=== PATIENT | female | born 1935 | race Caucasian/White ===

== ENCOUNTER 2017-08-02 07:59 | Day surgery (SDC) | payer MEDICARE, SELFPAY ==
[2017-08-02] VITALS (7 sets, daily range): BP systolic 158–190; BP diastolic 70–78; PULSE 75–82; RESP 16–20; TEMP 36.3–36.5; O2SAT 95–98; BMI 31.8
== END 2017-08-02 11:24 | disposition home or self-care (01) ==
LOC: OR 08:02
PROVIDERS: Family Provider Family Medicine; PCP Family Medicine; Visit Provider Ophthalmology
DX: H26.9 Unspecified cataract (principal)
CPT/HCPCS: 66984; V2632

== ENCOUNTER → 2017-09-10 09:23 | Outpatient (CLI) | payer MEDICARE, SELFPAY ==
[2017-09-10 10:15] LABS: Alanine Aminotransferase 29 U/L (12-78); Albumin Level 3.8 gm/dL (3.4-5.0); Alkaline Phosphatase 80 U/L (46-116); Anion Gap 11.4 mEq/L (5-15); Aspartate Amino Transferase 12 U/L (15-37); Bilirubin,Total 0.3 mg/dL (0.2-1.0); Blood Urea Nitrogen 16 mg/dL (7-18); Calcium 9.4 mg/dL (8.5-10.1); Carbon Dioxide 31 mmol/L (21.0-32.0); Chloride 104 mmol/L (98-107); Chol/HDL Ratio 3.8 (1-3.5); Cholesterol 222 mg/dL (140-200); Creatinine,Serum 0.79 mg/dL (0.55-1.02); Estimated Glomerular Filt Rate 70 ml/min (>60); GFR (African American) 84 ML/MIN (>60); Glucose 109 mg/dL (74-106); HDL Cholesterol 58 mg/dL (29-89); LDL Cholesterol 131 mg/dL (0-130); Potassium 4.4 mmoL/L (3.5-5.1); Sodium 142 mmol/L (136-145); Total Protein,Serum 7.8 gm/dL (6.4-8.2); Triglycerides 167 mg/dL (30-200); VLDL Cholesterol 33 mg/dL (0-40)
[2017-09-10 10:19] LABS: Hemoglobin A1C 6.3 % (0.0-7.0)
== END ==
PROVIDERS: Visit Provider Family Medicine
DX: I10 Essential (primary) hypertension; F41.9 Anxiety disorder, unspecified; E78.5 Hyperlipidemia, unspecified; Z79.899 Other long term (current) drug therapy
CPT/HCPCS: 36415; 80053; 80061; 83036

== ENCOUNTER → 2018-03-07 16:37 | Outpatient (CLI) | payer MEDICARE, SELFPAY ==
--- NOTE | 2018-03-07 16:45 | XR_ITS ---
XR hand RT min 3V HISTORY: Post traumatic pain ITS.REASON: INJURY RIGHT SMALL FINGER ORDERING PHYSICIAN: Jase Leyva MD PATIENT AGE: 82 years COMPARISON: None FINDINGS: No fracture or dislocation. No lytic or blastic change. There is normal mineralization.. The joint spaces are well-preserved. No significant degenerative/arthritic changes. No erosive changes evident.. IMPRESSION: Negative, no acute finding
== END ==
PROVIDERS: PCP Family Medicine; Visit Provider Family Medicine
DX: M79.644 Pain in right finger(s) (principal)
CPT/HCPCS: 73130

== ENCOUNTER 2018-08-18 19:22 | Observation (INO) ==
[2018-08-18 19:41] LABS: Basophils % 0.5 % (0.1-2.0); Eosinophils # 0.1 K/mm3 (0.0-0.4); Eosinophils % 1.8 % (0.1-12.0); Hematocrit 40.1 % (37.0-47.0); Hemoglobin 12.8 g/dL (12.2-16.2); Lymphocytes % 38.8 % (10-50); Mean Corpuscular Hemoglobin 29.7 pg (27.0-31.2); Mean Corpuscular Volume 92.9 fl (81-99); Mean Platelet Volume 7.3 fl (7.4-10.4); Monocytes # 0.3 K/mm3 (0.1-1.0); Monocytes % 4.4 % (1.7-9.3); Neutrophils # 4.2 K/mm3 (1.8-7.8); Neutrophils % 54.5 % (37.0-80.0); Platelet Count 291 K/mm3 (142-424); Red Blood Count 4.32 M/mm3 (4.20-5.40); Red Cell Distribution Width 13.7 % (11.5-17.5); White Blood Count 7.7 K/mm3 (4.8-10.8)
[2018-08-18 19:57] LABS: Anion Gap 12.9 mEq/L (5-15); Blood Urea Nitrogen 19 mg/dL (7-18); Calcium 9.9 mg/dL (8.5-10.1); Carbon Dioxide 27 mmol/L (21.0-32.0); Chloride 100 mmol/L (98-107); Glucose 178 mg/dL (74-106); Potassium 3.9 mmoL/L (3.5-5.1); Sodium 136 mmol/L (136-145)
--- NOTE | 2018-08-18 20:47 | Emergency Department Note ---
ED Disposition Clinical Impression: Chest pain Qualifiers: Chest pain type: precordial pain Qualified Code(s): R07.2 - Precordial pain Disposition: Admitted as Observation Condition on Discharge: Good - Critical Care Critical Care Time: No Attestation: On 08/18/18, the high probability of a clinically significant, sudden or life threatening deterioration of the following system(s) required my full and direct attention, intervention and personal management. The time I documented below is in addition to time spent performing reported procedures but includes the following listed in this critical care notation. Medical Decision Making - Medical Records Medical records reviewed: Yes: I reviewed the patient's medical records. - James Inquiry Pt receiving controlled substance: No Vital Signs: 08/18/18 19:23 08/18/18 19:34 08/18/18 20:15 Temperature 98 F Temperature Source Oral Pulse Rate [Left Radial] 80 78 78 Respiratory Rate 15 16 Blood Pressure [Right Arm] 211/72 H 182/87 H 160/68 H Blood Pressure Mean [Right Arm] 118 118 98 Blood Pressure Source [Right Arm] Automatic Cuff Blood Pressure Position [Right Arm] Sitting 02 Sat by Pulse Oximetry 94 L 94 L Oxygen Delivery Method Nasal Cannula Room Air 08/18/18 22:04 08/18/18 22:16 Temperature Temperature Source Pulse Rate [Left Radial] 71 76 Respiratory Rate 16 16 Blood Pressure [Right Arm] 149/71 H 156/72 H Blood Pressure Mean [Right Arm] 97 100 Blood Pressure Source [Right Arm] Blood Pressure Position [Right Arm] 02 Sat by Pulse Oximetry 94 L 97 Oxygen Delivery Method Room Air Room Air - Lab Data Lab results reviewed: Yes: I reviewed the patient's lab results. Lab Results 08/18/18 19:31: WBC 7.7, RBC 4.32, Hgb 12.8, Hct 40.1, MCV 92.9, MCH 29.7, MCHC 32.0, RDW 13.7, Plt Count 291, MPV 7.3 L, Neut % (Auto) 54.5, Lymph % (Auto) 38.8, [place] % (Auto) 4.4, Eos % (Auto) 1.8, Baso % (Auto) 0.5, Neut # (Auto) 4.2, Lymph # (Auto) 3.0, [place] # (Auto) 0.3, Eos # (Auto) 0.1, Baso # (Auto) 0.0 08/18/18 19:31: Sodium 136, Potassium 3.9, Chloride 100, Carbon Dioxide 27, Anion Gap 12.9, BUN 19 H, Creatinine 0.84, Estimated Creat Clear 49, Estimated GFR 65, Est GFR ( Amer) 78, Glucose 178 H, Calcium 9.9, Troponin I < 0.02 Result diagrams: 08/18/18 19:31 08/18/18 19:31 Orders (Tests/Meds): ED MEDICATIONS Generic Name Dose Route Start Last Admin Trade Name Freq PRN Reason Stop Dose Admin Sodium Chloride 10 ml 08/18/18 19:31 Saline Flush 10ml Syringe IV 09/17/18 19:30 NEEDED PRN Maintain IV Site Discontinued Medications Generic Name Dose Route Start Last Admin Trade Name Freq PRN Reason Stop Dose Admin Aspirin 324 mg 08/18/18 19:31 08/18/18 19:34 Aspirin 81mg Chewable Tablet PO 08/18/18 19:32 324 mg ONCE ONE Administration Nitroglycerin 1 gm 08/18/18 22:12 08/18/18 22:16 Nitroglycerin 1 Inch Oint Udp TD 08/18/18 22:13 1 gm ONCE ONE Administration ORDERS Category Date Time Status XR chest portable Stat Exams 08/18/18 19:30 Taken - Radiology Data #1 Image(s): Chest Image Reviewed: Yes I reviewed the patient's radiology image Preliminary Findings: Abnormal (cm) - ECG Data Tracing #1 Normal Sinus Rhythm: Yes Ischemic changes: non-specific ST-T wave changes - Physician Consults Physician Consulted: eddie Reason -: Admission Chest Pain HPI - General Chief Complaint: Chest Pain Stated Complaint: palpitations Time Seen by Provider: 08/18/18 20:00 Mode of Arrival: Ambulatory Source of Information: Patient, Relative, Medical Record Limitations: No Limitations Description of Symptoms (Recalled from ER Triage Doc. by RN): pt reports palpitations that started this evening, daughter reports that patient "just has not felt well" all day today, states it feels like a "flutter" in her chest, pt reports she is also "getting over the flu" - History of Present Illness HPI narrative: pt with fluttering pressure pain in chest for a few hrs this afternoon described as pressure - she had something like this 2 yrs ago and possible 2 weeks ago with no eval reported - MD complaint: chest pain indicative of cardiac Onset (ago): hour(s) Duration: now resolved Activity at onset: during rest Pain location: left chest Severity: moderate Quality: other (pressure) Risk Factors for CAD: Hypertension, Family Hx of CAD Treatments prior to or on arrival for Cardiac Chest Pain: none - IESHA Score for Non-Stemi Age of Patient: 80-89 years old Heart Rate: 70-89 bpm Systolic Blood Pressure: 200 mmhg or higher Serum Creatinine: 0.80-1.19 mg/dl CHF [place] Class: I-No CHF Other Risk Factors: None Non-Stemi Risk Score: 107 - Related Data On Oral Contraceptives: No Home Medications Medication Instructions Recorded Confirmed Metoprolol Succinate 50 mg PO DAILY 08/02/17 08/18/18 Amlodipine Besylate/Benazepril 1 cap PO DAILY 07/20/18 08/18/18 [Amlodipine-Benazepril 10-20 mg] Doxazosin Mesylate [Doxazosin 1mg 1 mg PO DAILY 07/20/18 08/18/18 Tab] Allergies Allergy/AdvReac Type Severity Reaction Status Date / Time No Known Allergies Allergy Verified 08/18/18 19:30 [facility] History - Hepatitis A Screen Drug use history?: No High risk sexual behaviors?: No History of sexually transmitted infection?: No Currently employed?: No Childcare worker?: No Do you have indoor plumbing?: Yes Do you have electricity?: Yes Attestation statement:: This patient has been screened for Hepatitis A risk factors. I have reviewed the patient's past medical history: Yes Medical History: Reports:: Hypertension Denies:: Cancer, Diabetes Mellitus Type 1, Diabetes Mellitus Type 2, Internal Pacemaker, Lung Disease, MRSA, Seizures Laterality Cases: Bilateral: Other Other Surgeries: No: Pacemaker Amputation: No - Social History Smoking Status: Never smoker Alcohol Intake: never Occupational Status: retired Household Members: family - Psychiatric History Expresses thoughts of harming self/others: None Suicide Plan Description: No Plan ROS Obtained: Yes All systems reviewed & no additional complaints - Constitutional Constitutional: Denies fever(s) - Eyes Eyes: Denies change in vision - ENT Ears, Nose, Mouth, and Throat: Reports change in voice, Denies sore throat - Cardiovascular Cardiovascular: Reports chest pain, Reports chest pain at rest, Denies dyspnea, Denies radiating jaw, neck or arm pain, Denies rapid heart rate - Respiratory Respiratory: No cough - Gastrointestinal Gastrointestingal: Denies: abdominal pain - Genitourinary Female Genitourinary: Denies hematuria - Musculoskeletal Musculoskeletal: Denies joint pain - Integumentary/Breasts Skin/Breast: Denies rash - Neurologic Neurologic: Denies headache(s), Denies seizure-like activity Physical Exam - General General appearance: alert - Head Head exam: normocephalic - Eye Eye exam: Present: PERRL, EOMI. Absent: scleral icterus - ENT ENT exam: Present: mucous membranes dry - Neck Neck exam: Present: trachea midline - Respiratory Respiratory exam: Absent: respiratory distress - Cardiovascular Cardiovascular exam: Present: regular rate, systolic murmur, +S4 - Abdominal Exam Abdominal exam: Present: soft - Extremities Exam Extremities exam: Absent: calf tenderness - Neurological Exam Neurological exam: Present: alert, oriented X3, CN II-XII intact - Psychiatric Psychiatric exam: Present: normal affect - Skin Skin exam: Absent: rash
[2018-08-19 05:16] LABS: Basophils % 0.7 % (0.1-2.0); Eosinophils # 0.2 K/mm3 (0.0-0.4); Eosinophils % 3.6 % (0.1-12.0); Hematocrit 33.7 % (37.0-47.0); Lymphocytes # 2.1 K/mm3 (0.7-4.5); Lymphocytes % 36.8 % (10-50); Mean Corpuscular HGB Conc 32.2 g/dL (31.8-35.4); Mean Corpuscular Hemoglobin 30.3 pg (27.0-31.2); Mean Corpuscular Volume 94.2 fl (81-99); Mean Platelet Volume 7.4 fl (7.4-10.4); Monocytes # 0.3 K/mm3 (0.1-1.0); Monocytes % 4.5 % (1.7-9.3); Neutrophils # 3.1 K/mm3 (1.8-7.8); Neutrophils % 54.4 % (37.0-80.0); Platelet Count 233 K/mm3 (142-424); Red Blood Count 3.58 M/mm3 (4.20-5.40); Red Cell Distribution Width 13.7 % (11.5-17.5); White Blood Count 5.7 K/mm3 (4.8-10.8)
[2018-08-19 05:26] LABS: Hemoglobin 10.9 g/dL (12.2-16.2)
[2018-08-19 05:38] LABS: Anion Gap 10.6 mEq/L (5-15); Blood Urea Nitrogen 17 mg/dL (7-18); Calcium 9.4 mg/dL (8.5-10.1); Carbon Dioxide 28 mmol/L (21.0-32.0); Chloride 104 mmol/L (98-107); Potassium 4.6 mmoL/L (3.5-5.1); Sodium 138 mmol/L (136-145)
[2018-08-19 05:39] LABS: Glucose 108 mg/dL (74-106)
--- NOTE | 2018-08-19 09:10 | H&P/Discharge Summary ---
General - General Admission date:: 08/18/18 *Chief complaint: Chest pressure *History of present illness: Ms. Allan is an 83-year-old white female with a history of hypertension. Yesterday, while resting at home she began feeling a fluttering sensation in her chest followed by some mild chest pressure. No saima chest pain. No increased shortness of breath or nausea. She states that the night before she had not rested well because of an upset stomach but had no vomiting, abdominal pain, or diarrhea. Her symptoms of chest pressure persisted and she presented to the emergency room last evening. She was worked up in the ER. Her initial cardiac enzymes and EKG were normal and her symptoms resolved while in the emergency room. She has been admitted for further observation and serial enzymes. At the time of my exam this morning, she states she rested well through the night. She feels better this morning. She has had no further symptoms of chest pressure or fluttering. She tolerated her breakfast. [facility] History Medical History: Reports:: Anxiety, Gastroesophageal Reflux Disease(GERD), Hiatal Hernia, Hypertension Denies:: Atrial Fibrillation, Cancer, Chronic Obstructive Pulmonary Disease (COPD), Diabetes Mellitus Type 2, Internal Pacemaker, Lung Disease, MRSA, Seizures Have you ever received a pneumonia vaccine?: No Have you received a flu vaccine this season?: No Other Medical History: Reports: Cataracts. Denies: Thyroid Disease Laterality Cases: Bilateral: Cataract, Other Other Surgeries: Yes: Cholecystectomy Amputation: No Fractures: No - *Social History Educational Level: Completed High School Smoking Status: Never smoker Alcohol Intake: never Occupational Status: retired Housing: house Household Members: family Travel in the last 8 weeks: None - Psychiatric History Expresses thoughts of harming self/others: None Suicide Plan Description: No Plan Pschychiatric History:: Reports:: Anxiety Family Hx:: No significant family history Review of Systems - Constitutional Reports lack of energy, Reports malaise, Denies anorexia, Denies body ache(s), Denies chills - Eyes Denies blurry vision, Denies change in vision, Denies double vision - ENT Reports dry mouth, Reports ear pain, Reports other (nose feels dry), Denies difficulty swallowing - *Cardiovascular Reports other (See HPI) - *Respiratory Reports cough, Denies chest congestion, Denies shortness of breath - *Gastrointestinal Reports abdominal pain (epigastric, mild), Reports nausea, Denies change in bowel habits, Denies black, tarry stools, Denies vomiting - *Genitourinary Denies abnormal vaginal bleeding, Denies blood in urine, Denies urinary urgency - *Musculoskeletal Denies joint swelling, Denies body aches - Integumentary/Breasts Denies yellowing of the skin, Denies unusual bruising - *Neurologic Denies headache(s), Denies seizure-like activity - Psychiatric Denies anxiety, Denies behavioral changes, Denies change in appetite - Endocrine Denies excessive sweating, Denies flushing - Hematologic/Lymphatic Denies easy bruising - Allergic/Immunologic Denies itchy eyes, Denies throat swelling Exam Vital signs and Labs for Last 24 Hours: Temp Pulse Resp BP Pulse Ox 97.8 F 80 20 122/59 L 92 L 08/19/18 08:00 08/19/18 08:00 08/19/18 03:55 08/19/18 08:00 08/19/18 08:00 Laboratory Results - last 24 hr 08/18/18 19:31: WBC 7.7, RBC 4.32, Hgb 12.8, Hct 40.1, MCV 92.9, MCH 29.7, MCHC 32.0, RDW 13.7, Plt Count 291, MPV 7.3 L, Neut % (Auto) 54.5, Lymph % (Auto) 38.8, [place] % (Auto) 4.4, Eos % (Auto) 1.8, Baso % (Auto) 0.5, Neut # (Auto) 4.2, Lymph # (Auto) 3.0, [place] # (Auto) 0.3, Eos # (Auto) 0.1, Baso # (Auto) 0.0 08/18/18 19:31: Sodium 136, Potassium 3.9, Chloride 100, Carbon Dioxide 27, Anion Gap 12.9, BUN 19 H, Creatinine 0.84, Estimated Creat Clear 49, Estimated GFR 65, Est GFR ( Amer) 78, Glucose 178 H, Calcium 9.9, Troponin I < 0.02 08/19/18 02:00: Troponin I < 0.02 08/19/18 04:30: Sodium 138, Potassium 4.6, Chloride 104, Carbon Dioxide 28, Anion Gap 10.6, BUN 17, Creatinine 0.75, Estimated Creat Clear 49, Estimated GFR 74, Est GFR ( Amer) 89, Glucose 108 H D, Calcium 9.4, Magnesium 2.3 H, Troponin I < 0.02 08/19/18 04:30: WBC 5.7 D, RBC 3.58 L, Hgb 10.9 L D, Hct 33.7 L, MCV 94.2, MCH 30.3, MCHC 32.2, RDW 13.7, Plt Count 233, MPV 7.4, Neut % (Auto) 54.4, Lymph % (Auto) 36.8, [place] % (Auto) 4.5, Eos % (Auto) 3.6, Baso % (Auto) 0.7, Neut # (Auto) 3.1, Lymph # (Auto) 2.1, [place] # (Auto) 0.3, Eos # (Auto) 0.2, Baso # (Auto) 0.0 I & O for Last 24 hours: Intake & Output 08/16/18 08/17/18 08/18/18 08/19/18 11:59 11:59 11:59 11:59 Intake Total 671 / 671 Balance 671 / 671 Weight 163 lb 7 oz Narrative: She is sitting on the side of the bed and appears in no acute distress. Color is normal. She is alert and oriented to person, legs, and time. HEENT shows the cranium to be atraumatic and normocephalic. Sclera and conjunctive are clear. Nares patent. Oropharynx shows no oral lesions. Neck is supple with no masses, thyromegaly, or bruits. Lungs are clear to auscultation. Heart is regular with no murmurs. Abdomen is soft and nondistended with no unusual masses. There is mild epigastric tenderness to palpation. No rebound or guarding. Extremities show no edema. Hospital Course Hospital Course: She was admitted to the floor to a monitored bed. residential monitor is showing normal sinus rhythm. Serial enzymes have been negative. She rested well through the night with no further symptoms of chest pressure or palpitations. She has ambulated in the room this morning and tolerated her breakfast. She is stable for discharge home. We discussed her past history of hiatal hernia and reflux. She is not currently on medications for this. Her symptoms last evening could be a manifestation of her hernia. She will be discharged home on omeprazole and followed up as an outpatient. Results Labs on day of discharge: Labs from last 24 hours 08/19/18 08/19/18 08/19/18 04:30 04:30 02:00 WBC 5.7 D RBC 3.58 L Hgb 10.9 L D Hct 33.7 L MCV 94.2 MCH 30.3 MCHC 32.2 RDW 13.7 Plt Count 233 MPV 7.4 Neut % (Auto) 54.4 Lymph % (Auto) 36.8 [place] % (Auto) 4.5 Eos % (Auto) 3.6 Baso % (Auto) 0.7 Neut # (Auto) 3.1 Lymph # (Auto) 2.1 [place] # (Auto) 0.3 Eos # (Auto) 0.2 Baso # (Auto) 0.0 Sodium 138 Potassium 4.6 Chloride 104 Carbon Dioxide 28 Anion Gap 10.6 BUN 17 Creatinine 0.75 Estimated Creat Clear 49 Estimated GFR 74 Est GFR ( Amer) 89 Glucose 108 H D Calcium 9.4 Magnesium 2.3 H Troponin I < 0.02 < 0.02 08/18/18 08/18/18 19:31 19:31 WBC 7.7 RBC 4.32 Hgb 12.8 Hct 40.1 MCV 92.9 MCH 29.7 MCHC 32.0 RDW 13.7 Plt Count 291 MPV 7.3 L Neut % (Auto) 54.5 Lymph % (Auto) 38.8 [place] % (Auto) 4.4 Eos % (Auto) 1.8 Baso % (Auto) 0.5 Neut # (Auto) 4.2 Lymph # (Auto) 3.0 [place] # (Auto) 0.3 Eos # (Auto) 0.1 Baso # (Auto) 0.0 Sodium 136 Potassium 3.9 Chloride 100 Carbon Dioxide 27 Anion Gap 12.9 BUN 19 H Creatinine 0.84 Estimated Creat Clear 49 Estimated GFR 65 Est GFR ( Amer) 78 Glucose 178 H Calcium 9.9 Magnesium Troponin I < 0.02 - Impressions FINDINGS: The lung queen are well expanded and appear clear of infiltrate. There is mild generalized cardiomegaly with calcification of the aortic arch, however the vascularity is normal and there is no pleural fluid. IMPRESSION: Borderline cardio megaly, no acute chest pathology noted. DS: Diagnosis - Discharge Diagnosis (1) Chest pain Status: Acute (2) Hypertension Status: Acute (3) Hiatal hernia Status: Acute Discharge Medications - Medications for Discharge Home Medication List at Discharge: New Omeprazole [Omeprazole 20mg Capsule] 20 mg PO DAILY #30 cap Continue Doxazosin Mesylate [Doxazosin 1mg Tab] 1 mg PO BID Metoprolol Succinate 50 mg PO DAILY Amlodipine Besylate [Amlodipine 10mg Tab] 10 mg PO HS Benazepril HCl 20 mg PO DAILY Disposition Disposition: Home, Self-Care
== END 2018-08-19 10:34 | disposition home or self-care (01) ==
LOC: 2ND 19:22 → ER 19:22 → 2ND 22:53
PROVIDERS: ADMIT Family Medicine; ATTEND Family Medicine
CPT/HCPCS: 36415; 71010; 71045; 80048; 83735; 84484; 85025; 93005; 99284; G0378

== ENCOUNTER → 2018-09-04 09:09 | Outpatient (CLI) | payer MEDICARE, SELFPAY ==
[2018-09-04 10:06] LABS: Alanine Aminotransferase 18 U/L (12-78); Albumin Level 3.8 gm/dL (3.4-5.0); Albumin/Globulin Ratio 1.1 (1.1-1.8); Alkaline Phosphatase 88 U/L (46-116); Anion Gap 12.3 mEq/L (5-15); Aspartate Amino Transferase 7 U/L (15-37); Bilirubin,Total 0.4 mg/dL (0.2-1.0); Blood Urea Nitrogen 18 mg/dL (7-18); Calcium 10.3 mg/dL (8.5-10.1); Carbon Dioxide 28 mmol/L (21.0-32.0); Chloride 104 mmol/L (98-107); Chol/HDL Ratio 3.2 (1-3.5); Cholesterol 199 mg/dL (140-200); Creatinine,Serum 0.78 mg/dL (0.55-1.02); Estimated Glomerular Filt Rate 70 ml/min (>60); GFR (African American) 85 ML/MIN (>60); Globulin 3.6 gm/dl (1.3-3.2); Glucose 125 mg/dL (74-106); HDL Cholesterol 63 mg/dL (29-89); LDL Cholesterol 112 mg/dL (0-130); Potassium 4.3 mmoL/L (3.5-5.1); Sodium 140 mmol/L (136-145); Thyroid Stimulating Hormone 0.64 uIU/ml (0.358-3.740); Total Protein,Serum 7.4 gm/dL (6.4-8.2); Triglycerides 120 mg/dL (30-200); VLDL Cholesterol 24 mg/dL (0-40)
== END ==
PROVIDERS: Visit Provider Family Medicine
DX: E78.5 Hyperlipidemia, unspecified (principal); I10 Essential (primary) hypertension; F32.9 Major depressive disorder, single episode, unspecified
CPT/HCPCS: 36415; 80053; 80061; 84443

== ENCOUNTER → 2019-02-22 15:18 | Outpatient (CLI) | payer MEDICARE, SELFPAY ==
--- NOTE | 2019-02-22 15:20 | CT_ITS ---
PROCEDURE: CT SINUS WO CON CLINICAL HISTORY: CHRONIC PANSINUSITIS Bilateral ear pain, chronic sinusitis COMPARISON: No exams were available for comparison TECHNIQUE: Axial images obtained with sagittal and coronal reformats. All CT scans at the facility use one or more dose reduction, viz: automated exposure control, ma/kV adjustment per patient size (including targeted exams where dose is matched to indication, i.e. head), or iterative reconstruction technique. FINDINGS: The frontal, ethmoid, maxillary sinuses have an unremarkable appearance. There is a small amount of mucous within the right aspect of the sphenoid sinus. No sinus air-fluid level. The ostiomeatal complexes are patent. Scattered small lymph nodes are present in the neck. The orbits have an unremarkable appearance. No mastoid effusion. The middle ears are well aerated. There is some obliteration of the lateral pharyngeal recess on the right. This may be due to nondistention. Direct visualization may confirm. IMPRESSION: Negative CT paranasal sinuses Small cervical nodes. Nonspecific obliteration of the right parapharyngeal recess Dictated by: Rik Felder MD 02/23/2019 05:25 Signed by: <Electronically signed by Rik Felder MD in [facility]> 02/23/2019 05:25
== END ==
PROVIDERS: PCP Family Medicine; Visit Provider Family Medicine
DX: J32.4 Chronic pansinusitis (principal)
CPT/HCPCS: 70486

== ENCOUNTER → 2020-06-24 16:26 | Outpatient (CLI) | payer MEDICARE, SELFPAY | PROVIDERS: Visit Provider Physician Assistant | DX: R30.0 Dysuria (principal) | CPT/HCPCS: 87086 ==

== ENCOUNTER → 2020-07-09 15:14 | Outpatient (CLI) | payer MEDICARE, SELFPAY | PROVIDERS: Visit Provider Physician Assistant | DX: R39.9 Unspecified symptoms and signs involving the genitourinary system (principal) | CPT/HCPCS: 87086 ==

== ENCOUNTER → 2020-07-10 15:01 | Outpatient (CLI) | payer MEDICARE, SELFPAY ==
[2020-07-10 15:56] LABS: Basophils # 0.1 K/mm3 (0-0.2); Basophils % 0.8 % (0.1-2.0); Eosinophils # 0.2 K/mm3 (0.0-0.4); Eosinophils % 2.3 % (0.1-12.0); Hematocrit 42.8 % (37.0-47.0); Hemoglobin 12.8 g/dL (12.2-16.2); Lymphocytes # 1.5 K/mm3 (0.7-4.5); Lymphocytes % 22.9 % (10-50); Mean Corpuscular Hemoglobin 29.2 pg (27.0-31.2); Mean Corpuscular Volume 97.4 fl (81-99); Mean Platelet Volume 9.3 fl (7.4-10.4); Monocytes # 0.2 K/mm3 (0.1-1.0); Monocytes % 3.5 % (1.7-9.3); Neutrophils # 4.7 K/mm3 (1.8-7.8); Neutrophils % 70.5 % (37.0-80.0); Platelet Count 287 K/mm3 (142-424); Red Blood Count 4.39 M/mm3 (4.20-5.40); Red Cell Distribution Width 12.7 % (11.5-17.5); White Blood Count 6.6 K/mm3 (4.8-10.8)
[2020-07-10 16:06] LABS: Alanine Aminotransferase 18 U/L (12-78); Albumin Level 4.2 g/dl (3.5-5.0); Albumin/Globulin Ratio 1.2 (1.1-1.8); Alkaline Phosphatase 73 U/L (38-126); Aspartate Amino Transferase 26 U/L (14-36); Bilirubin,Total 0.5 mg/dl (0.2-1.3); Blood Urea Nitrogen 18 mg/dl (7-17); Calcium 10.4 mg/dl (8.4-10.2); Carbon Dioxide 27 mmol/L (22.0-30.0); Chloride 101 mmol/L (98-107); Chol/HDL Ratio 3.5 (1-3.5); Cholesterol 215 mg/dl (140-200); Estimated Glomerular Filt Rate 79 ml/min (>60); GFR (African American) 96 ML/MIN (>60); Globulin 3.6 g/dL (1.3-3.2); Glucose 212 mg/dl (74-100); HDL Cholesterol 62 mg/dl (40-60); Magnesium 1.9 mg/dl (1.6-2.3); Sodium 137 mmol/L (136-145); Total Protein,Serum 7.8 g/dl (6.3-8.2); Triglycerides 142 mg/dl (30-150); VLDL Cholesterol 28 mg/dL (0-40)
[2020-07-10 16:17] LABS: Direct LDL Cholesterol 120.16 mg/dL (100-129)
[2020-07-10 16:24] LABS: 25-OH Vitamin D, Total 34.4 ng/mL (30-100)
[2020-07-10 16:25] LABS: Free T4 (Free Thyroxine) 1.09 ng/dl (0.78-2.19)
[2020-07-10 16:38] LABS: Thyroid Stimulating Hormone 1.78 uIU/mL (0.465-4.68)
== END ==
PROVIDERS: Visit Provider Physician Assistant
DX: Z00.00 Encounter for general adult medical examination without abnormal findings (principal); R39.9 Unspecified symptoms and signs involving the genitourinary system; R68.89 Other general symptoms and signs; R07.9 Chest pain, unspecified
CPT/HCPCS: 80053; 80061; 82306; 83735; 84439; 84443; 85025

== ENCOUNTER → 2020-07-17 13:59 | Outpatient (CLI) | payer MEDICARE, SELFPAY ==
[2020-07-17 15:37] LABS: Hemoglobin A1C 5.9 % (4.0-6.0)
== END ==
PROVIDERS: Visit Provider Physician Assistant
DX: R73.09 Other abnormal glucose (principal)
CPT/HCPCS: 83036

== ENCOUNTER → 2020-12-03 09:34 | Outpatient (CLI) | payer MEDICARE, SELFPAY ==
--- NOTE | 2020-12-03 09:34 | XR_ITS ---
PROCEDURE: XR DEXA AXIAL SKELETON CLINICAL HISTORY: post menopausal COMPARISON: No exams were available for comparison FINDINGS: The right hip BMD is 0.648 with a T-score of -2.4. The left hip BMD is 0.564 with a T-score of -2.6. The lumbar spine BMD is 0.722 with a T-score of -3.0. IMPRESSION: This patient is considered osteoporotic according to the World Health Organization criteria. Fracture risk is high. Treatment is advised. Based on these results a follow-up exam is recommended in one year. Dictated by: Rik Felder MD 12/04/2020 07:49 Rik Felder MD in [facility] 12/04/2020 07:49
== END ==
PROVIDERS: PCP Physician Assistant; Visit Provider Physician Assistant
DX: Z78.0 Asymptomatic menopausal state (principal)
CPT/HCPCS: 77080

== ENCOUNTER → 2020-12-16 15:13 | Outpatient (CLI) | payer MEDICARE, SELFPAY ==
[2020-12-16 15:24] LABS: Basophils % 0.6 % (0.1-2.0); Chloride 101 mmol/L (98-107); Eosinophils # 0.1 K/mm3 (0.0-0.4); Eosinophils % 1.6 % (0.1-12.0); Hematocrit 38.6 % (37.0-47.0); Hemoglobin 12.6 g/dL (12.2-16.2); Lymphocytes # 1.3 K/mm3 (0.7-4.5); Lymphocytes % 21.1 % (10-50); Mean Corpuscular HGB Conc 32.7 g/dL (31.8-35.4); Mean Corpuscular Hemoglobin 30.6 pg (27.0-31.2); Mean Corpuscular Volume 93.4 fl (81-99); Mean Platelet Volume 8.9 fl (7.4-10.4); Monocytes # 0.3 K/mm3 (0.1-1.0); Monocytes % 4.7 % (1.7-9.3); Neutrophils # 4.6 K/mm3 (1.8-7.8); Neutrophils % 71.9 % (37.0-80.0); Platelet Count 279 K/mm3 (142-424); Potassium 5.4 mmoL/L (3.5-5.1); Red Blood Count 4.13 M/mm3 (4.20-5.40); Red Cell Distribution Width 13.1 % (11.5-17.5); Sodium 139 mmol/L (136-145); White Blood Count 6.4 K/mm3 (4.8-10.8)
[2020-12-16 15:27] LABS: Alanine Aminotransferase 14 U/L (12-78); Albumin Level 4.3 g/dl (3.5-5.0); Alkaline Phosphatase 74 U/L (38-126); Amylase 41 U/L (30-110); Anion Gap 13.4 mEq/L (5-15); Aspartate Amino Transferase 22 U/L (14-36); Bilirubin,Total 0.4 mg/dl (0.2-1.3); Blood Urea Nitrogen 18 mg/dl (7-17); Calcium 10.6 mg/dl (8.4-10.2); Carbon Dioxide 30 mmol/L (22.0-30.0); Estimated Glomerular Filt Rate 79 ml/min (>60); GFR (African American) 96 ML/MIN (>60); Glucose 158 mg/dl (74-100); Lipase 24 U/L (23-300)
[2020-12-16 15:28] LABS: Albumin/Globulin Ratio 1.3 (1.1-1.8); Globulin 3.3 g/dL (1.3-3.2); Total Protein,Serum 7.6 g/dl (6.3-8.2)
== END ==
PROVIDERS: Visit Provider Physician Assistant
DX: R10.13 Epigastric pain (principal)
CPT/HCPCS: 80053; 82150; 83690; 85025

== ENCOUNTER → 2020-12-18 13:59 | Outpatient (CLI) | payer MEDICARE, SELFPAY | PROVIDERS: Visit Provider Physician Assistant | DX: R30.9 Painful micturition, unspecified (principal); R68.89 Other general symptoms and signs | CPT/HCPCS: 87086 ==

== ENCOUNTER → 2020-12-22 14:04 | Outpatient (CLI) | payer MEDICARE, SELFPAY ==
--- NOTE | 2020-12-22 14:29 | XR_ITS ---
PROCEDURE: XR CHEST 2V CLINICAL HISTORY: epigastric pain COMPARISON: CR CXR2V XR chest 2V from 07/20/2018 CR CXR1VP XR chest portable from 08/18/2018 CR XR CHEST PORTABLE from 06/27/2019 FINDINGS: The heart is mildly enlarged and there is mild pulmonary vascular congestion with tiny right pleural effusion. No pneumothorax. Mild bibasilar scar versus atelectasis. No definite focal infiltrate. No acute bony abnormality. IMPRESSION: Mild cardiomegaly with mild pulmonary vascular congestion and tiny right pleural effusion. Dictated by: Julio Scales 12/22/2020 14:56 Julio Scales in [facility] 12/22/2020 14:56
--- NOTE | 2020-12-22 14:29 | XR_ITS ---
PROCEDURE: XR ABDOMEN MIN 2V CLINICAL INDICATION: epigastric pain COMPARISON: No exams were available for comparison FINDINGS: AP supine and upright views of the abdomen show a nonspecific bowel gas appearance without obstructive features. Moderate amount of stool in the colon. No free intraperitoneal air. Cholecystectomy clips noted. No acute bony abnormality. IMPRESSION: Nonspecific bowel gas appearance without obstructive features. Moderate amount of stool in the colon. No free intraperitoneal air. Dictated by: Julio Scales 12/22/2020 15:01 Julio Scales in [facility] 12/22/2020 15:01
[2020-12-22 14:42] LABS: Basophils # 0.1 K/mm3 (0-0.2); Basophils % 0.7 % (0.1-2.0); Eosinophils # 0.1 K/mm3 (0.0-0.4); Eosinophils % 0.6 % (0.1-12.0); Hematocrit 36.6 % (37.0-47.0); Hemoglobin 12.3 g/dL (12.2-16.2); Lymphocytes # 1.3 K/mm3 (0.7-4.5); Lymphocytes % 15.8 % (10-50); Mean Corpuscular HGB Conc 33.8 g/dL (31.8-35.4); Mean Corpuscular Hemoglobin 31.1 pg (27.0-31.2); Mean Corpuscular Volume 92.2 fl (81-99); Mean Platelet Volume 8.3 fl (7.4-10.4); Monocytes # 0.4 K/mm3 (0.1-1.0); Monocytes % 4.6 % (1.7-9.3); Neutrophils # 6.3 K/mm3 (1.8-7.8); Neutrophils % 78.3 % (37.0-80.0); Platelet Count 257 K/mm3 (142-424); Red Blood Count 3.97 M/mm3 (4.20-5.40)
[2020-12-22 15:34] LABS: Alanine Aminotransferase 14 U/L (12-78); Albumin Level 4.2 g/dl (3.5-5.0); Albumin/Globulin Ratio 1.3 (1.1-1.8); Alkaline Phosphatase 75 U/L (38-126); Amylase 36 U/L (30-110); Anion Gap 10.5 mEq/L (5-15); Aspartate Amino Transferase 22 U/L (14-36); Bilirubin,Total 0.4 mg/dl (0.2-1.3); Blood Urea Nitrogen 16 mg/dl (7-17); Calcium 9.7 mg/dl (8.4-10.2); Carbon Dioxide 27 mmol/L (22.0-30.0); Chloride 102 mmol/L (98-107); Estimated Glomerular Filt Rate 79 ml/min (>60); GFR (African American) 96 ML/MIN (>60); Globulin 3.2 g/dL (1.3-3.2); Glucose 126 mg/dl (74-100); Lipase 23 U/L (23-300); Potassium 4.5 mmoL/L (3.5-5.1); Sodium 135 mmol/L (136-145); Total Protein,Serum 7.4 g/dl (6.3-8.2)
== END ==
PROVIDERS: PCP Physician Assistant; Visit Provider Physician Assistant
DX: R10.13 Epigastric pain (principal); R41.0 Disorientation, unspecified
CPT/HCPCS: 36415; 71046; 74019; 80053; 82150; 83690; 85025

== ENCOUNTER 2020-12-22 20:28 | Emergency (ER) | payer MEDICARE, SELFPAY ==
[2020-12-22 20:28] VITALS: PULSE 87; RESP 18; TEMP 36.9; O2SAT 93; BMI 26.5
--- NOTE | 2020-12-22 20:34 | ECG_ITS ---
APPROVED REPORT Exam: Resting ECG HR:77 bpm ECG Measurements Heart Rate 77 AXES MO 168 P 62 QRSd 106 QRS 50 QT 368 T 52 QTc 416 Conclusion Normal sinus rhythm Cannot rule out Anterior infarct, age undetermined Abnormal ECG Electronically signed by : Fly Haynes, 12/23/2020 08:17:13
--- NOTE | 2020-12-22 20:47 | CT_ITS ---
PROCEDURE INFORMATION: Exam: CT Abdomen And Pelvis With Contrast Exam date and time: 12/22/2020 8:47 PM Age: 85 years old Clinical indication: Abdominal pain; Generalized; Additional info: Abd pain TECHNIQUE: Imaging protocol: Computed tomography of the abdomen and pelvis with contrast. Radiation optimization: All CT scans at this facility use at least one of these dose optimization techniques: automated exposure control; mA and/or kV adjustment per patient size (includes targeted exams where dose is matched to clinical indication); or iterative reconstruction. Contrast material: ISOVUE; Contrast volume: 75 ml; Contrast route: IV; COMPARISON: CR XR ABDOMEN MIN 2V 12/22/2020 2:35 PM FINDINGS: Lungs: Mild streaky and dependent infiltrates in both lung bases. Pleural spaces: There are trace dependent pleural effusions. Heart: There is mild multichamber cardiomegaly with a trace pericardial effusion. Liver: Hepatic steatosis. Gallbladder and bile ducts: Status post cholecystectomy. Pancreas: Atrophy of the pancreas. Spleen: No splenomegaly or splenic mass. Adrenal glands: Normal. No mass. Kidneys and ureters: There are a few tiny low-density lesions within the kidneys which are too small to characterize. Stomach and bowel: There is diverticulosis most severe in the sigmoid colon but no definite diverticulitis. No small bowel obstruction or ileus is seen. Appendix: No evidence of appendicitis. No appendicolith. Intraperitoneal space: No free fluid, free air or focal inflammatory infiltration. Vasculature: There are multiple punctate phleboliths in the pelvis. Lymph nodes: No enlarged lymph nodes within the retroperitoneal space or mesentery. Urinary bladder: Unremarkable as visualized. Reproductive: Unremarkable as visualized. Bones/joints: Unremarkable. No acute fracture. No osteolytic or blastic bone lesions. Soft tissues: Paraspinous and extracorporeal soft tissues are unremarkable. IMPRESSION: 1. Diverticulosis but no definite diverticulitis. 2. Mild cardiomegaly with a trace pericardial effusion. 3. Trace dependent pleural effusions with mild streaky and dependent infiltrates in the lung bases. 4. Hepatic steatosis. 5. Status post cholecystectomy. COMMENTS: Consistent with the [employer]'s Incidental Findings Committee white paper (J Am Henry Radiol 2018): Any incidental renal lesion less than 1 cm or classified as too small to characterize, or any incidental cystic renal lesion characterized as simple-appearing, is likely benign. No follow-up imaging is recommended for these lesions per consensus recommendations based on imaging criteria.
[2020-12-22 21:00] VITALS: BP 182/73; PULSE 83; O2SAT 94
--- NOTE | 2020-12-22 21:05 | PC.NURSE ---
pt gone to CT.
--- NOTE | 2020-12-22 21:08 | HMH.EDNVD ---
ED Disposition Clinical Impression: Gastritis Qualifiers: Gastritis type: unspecified gastritis Chronicity: acute Gastritis bleeding: without bleeding Qualified Code(s): K29.00 - Acute gastritis without bleeding Disposition: Home, Self-Care Condition on Discharge: Good Instructions: DI for Acute Abdominal Pain Additional Instructions: use meds and see pcp for follow up Prescriptions: Sucralfate [Carafate 1gm/10mL Susp] 1 gm PO TID #300 ml Transmission Status: P[facility] to [facility] Metoclopramide HCl [Reglan 5mg Tablet] 5 mg PO ACHS 10 Days #40 tab Transmission Status: Pending to [facility] Referrals: Swathi Dean PA [Primary Care Provider] - - Critical Care Critical Care Time: No Attestation: On 12/22/20, the high probability of a clinically significant, sudden or life threatening deterioration of the following system(s) required my full and direct attention, intervention and personal management. The time I documented below is in addition to time spent performing reported procedures but includes the following listed in this critical care notation. Medical Decision Making - Medical Records Medical records reviewed: Yes: I reviewed the patient's medical records. - James Inquiry Pt receiving controlled substance: No Vital Signs: 12/22/20 20:28 12/22/20 21:00 12/22/20 21:43 Temperature 98.5 F Temperature Source Oral Pulse Rate 83 76 Pulse Rate [Left Radial] 87 Respiratory Rate 18 Blood Pressure 182/73 H 196/71 H Blood Pressure Source [Right Arm] Automatic Cuff Blood Pressure Position [Right Arm] Sitting 02 Sat by Pulse Oximetry 93 L 94 L 96 Oxygen Delivery Method Room Air - Lab Data Lab results reviewed: Yes: I reviewed the patient's lab results. Lab Results 12/22/20 21:02: Amylase < 30 L D, Lipase 25 12/22/20 21:03: WBC 8.5, RBC 3.93 L, Hgb 12.1 L, Hct 35.6 L, MCV 90.5, MCH 30.8, MCHC 34.0, RDW 13.1, Plt Count 247, MPV 8.5, Neut % (Auto) 71.1, Lymph % (Auto) 21.2, [place] % (Auto) 6.1, Eos % (Auto) 1.1, Baso % (Auto) 0.3, Neut # (Auto) 6.0, Lymph # (Auto) 1.8, [place] # (Auto) 0.5, Eos # (Auto) 0.1, Baso # (Auto) 0.0, ESR 121 H 12/22/20 21:03: Sodium 136, Potassium 3.9, Chloride 102, Carbon Dioxide 27, Anion Gap 10.9, BUN 17, Creatinine 0.80, Estimated Creat Clear 42, Estimated GFR 68, Est GFR ( Amer) 82, Glucose 89 D, Calcium 9.6, Total Bilirubin 0.4, AST 20, ALT 13, Alkaline Phosphatase 84, Troponin I < 0.01, C-Reactive Protein 6.1 H, Total Protein 7.8, Albumin 4.3, Globulin 3.5 H, Albumin/Globulin Ratio 1.2, Procalcitonin 0.036 12/22/20 21:50: Urine Color Yellow, Urine Appearance Clear, Urine pH 6.5, Ur Specific [place] 1.010, Urine Protein Negative, Urine Glucose (UA) Negative, Urine Ketones Negative, Urine Blood Negative, Urine Nitrate Negative, Urine Bilirubin Negative, Urine Urobilinogen 0.2, Ur Leukocyte Esterase Negative, Urine RBC None, Urine WBC None, Ur Squamous Epith Cells None, Urine Bacteria None Result diagrams: 12/22/20 21:03 12/22/20 21:03 Orders (Tests/Meds): ED MEDICATIONS Generic Name Dose Route Start Last Admin Trade Name Freq PRN Reason Stop Dose Admin Lactated Ringer's 1,000 mls @ 999 mls/hr 12/22/20 21:00 12/22/20 20:52 Lactated Ringer's 1000 Ml Bag IV 12/22/20 22:00 999 mls/hr .Q1H1M [facility] Administration Sodium Chloride 8 ml 12/22/20 20:48 Sodium Chloride 0.9% 10ml Vial IV 01/21/21 20:47 NEEDED PRN dilute pepcid Discontinued Medications Generic Name Dose Route Start Last Admin Trade Name Freq PRN Reason Stop Dose Admin Famotidine 20 mg 12/22/20 20:48 12/22/20 20:52 Famotidine 20mg/2ml Vial IV 12/22/20 20:49 20 mg ONCE ONE Administration Iopamidol 75 ml 12/22/20 21:14 12/22/20 21:15 Iopamidol-370 (76%);100ml Bottle IV 12/22/20 21:15 75 ml ONCE ONE Administration Metoclopramide HCl 10 mg 12/22/20 20:47 12/22/20 20:52 Metoclopramide Hcl 10mg/2ml Vial
[2020-12-22 21:15] LABS: Chloride 102 mmol/L (98-107); Potassium 3.9 mmoL/L (3.5-5.1); Sodium 136 mmol/L (136-145)
[2020-12-22 21:17] LABS: Basophils % 0.3 % (0.1-2.0); Eosinophils # 0.1 K/mm3 (0.0-0.4); Eosinophils % 1.1 % (0.1-12.0); Hematocrit 35.6 % (37.0-47.0); Hemoglobin 12.1 g/dL (12.2-16.2); Lymphocytes # 1.8 K/mm3 (0.7-4.5); Lymphocytes % 21.2 % (10-50); Mean Corpuscular Hemoglobin 30.8 pg (27.0-31.2); Mean Corpuscular Volume 90.5 fl (81-99); Mean Platelet Volume 8.5 fl (7.4-10.4); Monocytes # 0.5 K/mm3 (0.1-1.0); Monocytes % 6.1 % (1.7-9.3); Neutrophils % 71.1 % (37.0-80.0); Platelet Count 247 K/mm3 (142-424); Red Blood Count 3.93 M/mm3 (4.20-5.40); Red Cell Distribution Width 13.1 % (11.5-17.5); White Blood Count 8.5 K/mm3 (4.8-10.8)
[2020-12-22 21:18] LABS: Alanine Aminotransferase 13 U/L (12-78); Albumin Level 4.3 g/dl (3.5-5.0); Albumin/Globulin Ratio 1.2 (1.1-1.8); Alkaline Phosphatase 84 U/L (38-126); Anion Gap 10.9 mEq/L (5-15); Aspartate Amino Transferase 20 U/L (14-36); Bilirubin,Total 0.4 mg/dl (0.2-1.3); Blood Urea Nitrogen 17 mg/dl (7-17); Carbon Dioxide 27 mmol/L (22.0-30.0); Creatinine Clearance Estimated 42 mL/min (50-200); Estimated Glomerular Filt Rate 68 ml/min (>60); GFR (African American) 82 ML/MIN (>60); Globulin 3.5 g/dL (1.3-3.2); Total Protein,Serum 7.8 g/dl (6.3-8.2)
[2020-12-22 21:19] LABS: Calcium 9.6 mg/dl (8.4-10.2); Glucose 89 mg/dl (74-100)
--- NOTE | 2020-12-22 21:20 | PC.NURSE ---
pt back in room from radiology.
[2020-12-22 21:24] LABS: C-Reactive Protein 6.1 mg/L (0-4)
[2020-12-22 21:34] LABS: Amylase < 30 U/L (30-110); Lipase 25 U/L (23-300)
[2020-12-22 21:34] LABS: Troponin I < 0.01 ng/ml (0.00-0.034)
[2020-12-22 21:43] VITALS: BP 196/71; PULSE 76; O2SAT 96
[2020-12-22 21:55] LABS: Erythrocyte Sedimentation Rate 121 mm/hr (0-30)
[2020-12-22 21:56] LABS: Microscopic, Urine URINE MICROSCOPIC (MICROSCOPIC)
[2020-12-22 22:00] VITALS: BP 194/70; PULSE 68; O2SAT 94
[2020-12-22 22:13] LABS: Procalcitonin 0.036 ng/mL (0.0-2.0)
[2020-12-22 22:20] LABS: Appearance,Urine CLEAR (Clear); Bilirubin,Urine Negative (Negative); Blood, Urine Negative (Negative); Color,Urine YELLOW (Yellow); Glucose,Urine (UA) Negative (Negative); Ketones,Urine Negative (Negative); Leukocyte Esterase,Urine Negative (Negative); Nitrate,Urine Negative (Negative); PH,Urine 6.5 (5.0-8.5); Protein,Urine Negative (Negative); Urobilinogen,Urine 0.2 EU/dl (0.2)
[2020-12-22 23:01] VITALS: BP 187/69; PULSE 69; O2SAT 93
[2020-12-22 23:35] VITALS: BP 185/72; PULSE 74; RESP 18; TEMP 36.7; O2SAT 94
== END 2020-12-22 23:36 | disposition home or self-care (01) ==
PROVIDERS: Emergency Provider Emergency Medicine; PCP Physician Assistant
DX: K29.00 Acute gastritis without bleeding (principal); K21.9 Gastro-esophageal reflux disease without esophagitis; I10 Essential (primary) hypertension
CPT/HCPCS: 36415; 71046; 74019; 74177; 80053; 81001; 82150; 83690; 84145; 84484; 85025; 85651; 86140; 93005; 96365; 96375; 99283; Q9967

== ENCOUNTER → 2021-02-21 08:42 | Outpatient (CLI) | payer MEDICARE, SELFPAY | PROVIDERS: Visit Provider Internal Medicine Gastroenterology | DX: Z01.812 Encounter for preprocedural laboratory examination (principal); Z20.822 Contact with and (suspected) exposure to COVID-19; Z13.810 Encounter for screening for upper gastrointestinal disorder | CPT/HCPCS: U0003 ==

== ENCOUNTER 2021-02-23 12:53 | Day surgery (SDC) | payer MEDICARE, SELFPAY ==
[2021-02-18 13:32] VITALS: BMI 26.9
[2021-02-23 13:10] VITALS: BP 211/72; PULSE 89; RESP 16; TEMP 36.8; O2SAT 96
[2021-02-23 13:24] VITALS: O2SAT 98
--- NOTE | 2021-02-23 13:34 | P.PN_ITS ---
[facility] Anesthesia Checklist - Patient Identification Patient Identification: Arm Band - Structural Data Admitted From: Home Planned Operative Procedure/s: egd Consent for Planned Operative Procedure(s) Verified: Yes Verified Documents: Surgical Consent, History and Physical - NPO Status Verified Time NPO: 00:00 - Additional verifications Anesthesia Reactions: No - Airway Assessment C-Spine Mobility Assessed: Yes (mp2) TMJ Mobility Assessed: Yes Dentition: Good Dentition - Neurological Assessment Level of Consciousness: Awake, Alert - Anesthesia Plan Anesthesia Risk discussed: Yes Anesthesia Plan: Verified ASA Class: II Anesthesia Type: MAC [facility] History I have reviewed the patient's past medical history: Yes Medical History: Reports:: Anxiety, Gastroesophageal Reflux Disease(GERD), Hiatal Hernia, Hypertension Denies:: Atrial Fibrillation, Cancer, Chronic Obstructive Pulmonary Disease (COPD), Diabetes Mellitus Type 1, Diabetes Mellitus Type 2, Internal Pacemaker, Lung Disease, MRSA, Seizures *Have you ever received a pneumonia vaccine?: No *Have you received a flu vaccine this season?: No Other Medical History: Reports: Cataracts. Denies: Thyroid Disease Anesthesia experience/problems:: nac Laterality Cases: Bilateral: Other Other Surgeries: Yes: Cholecystectomy, Other. No: Pacemaker Amputation: No Fractures: No - *Social History Last grade of school completed: High school graduate Smoking Status: Never smoker Alcohol Intake: never Substance Use Type: denies use *Occupational Status:: retired Housing: house Household Members: children *Travel in the last 8 weeks: Inside the [place] - Psychiatric History Pschychiatric History:: Reports:: Anxiety Family Hx:: No significant family history
--- NOTE | 2021-02-23 13:46 | HMH.PROC ---
[facility] Procedure Note Procedure Note:: Upper Endoscopy Procedure Report: Esophagogastroduodenoscopy with cold biopsies Endoscopost: Gonzalo Meade II, MD Referring Physician: Swathi Dean PA-C Date of Procedure: February 23, 2021 Equipment: Olympus GIF 190 standard upper endoscope Sedation: MAC sedation Indications: Mrs. Allan is an 85-year-old female that has had longstanding reflux and dyspepsia. She was seen in the office and described some whitish patches on her tongue and stomach jitteriness even after taking diazepam. She does report early satiety and bloating. She reports no significant nausea or dysphagia. She does have some epigastric discomfort. She takes MiraLAX for her chronic constipation. She has had prior cholecystectomy. The patient did have an EGD with me in February 2011 and had a esophageal dysmotility and small hiatal hernia with linear gastropathy of the antrum. Her last colonoscopy with pr was in August 2002 at which time she had some left-sided diverticulosis. Procedure: Prior to the procedure, a history and physical exam was performed, and patient's medications and allergies were reviewed. The risks, benefits and alternatives of the sedation and procedure were discussed with the patient. All questions were answered and informed consent was obtained. The patient was brought to the procedure room. Patient identification and proposed procedure were verified by the physician and the nurse. The patient was placed in a left lateral decubitus position and the scope was passed under direct vision. Throughout the procedure, the patient's blood pressure, pulse, and oxygen saturations were monitored continuously. The upper GI endoscopy was accomplished without difficulty. The patient tolerated the procedure well. Findings: The scope was passed directly into the upper esophagus and advanced to the third portion of the duodenum. The post bulbar duodenum and duodenal bulb were normal with normal mucosa and conniventes. The scope was withdrawn through a normal duodenal bulb and pylorus into the stomach. There was moderate linear reactive gastropathy of the antrum with bile reflux. The remainder of the body and fundus of the stomach were grossly normal. Upon retroflexion there was a small 1 to 2 cm hiatal hernia. 2 biopsies were taken in the antrum and along the lesser curvature for histology to rule out gastritis and/or H pylori. The scope was then withdrawn into the esophagus. There was no evidence of reflux esophagitis, Eden's or Schatzki's ring. There was a serrated Z-line and biopsies were taken at the GE junction. There were some tertiary contractions and mild esophageal dysmotility. The remainder of the esophageal mucosa was normal. Impression: 1. Nonerosive GERD with mild esophageal dysmotility and very small sliding 1 to 2 cm hiatal hernia 2. Linear reactive gastropathy with bile reflux Plan: I will follow-up the biopsies. I do feel that the patient has primarily functional dyspepsia and functional GERD. I do feel that this likely is from gas pressure gradients. We will discuss dietary measures and treatment options. I would like for her to continue with a fiber bowel regimen (combined MiraLAX plus Metamucil daily).
[2021-02-23 13:49] VITALS: BP 140/55; PULSE 65; RESP 12; TEMP 36.5; O2SAT 91
[2021-02-23 13:59] VITALS: BP 162/77; PULSE 83; RESP 16; O2SAT 96
[2021-02-23 14:09] VITALS: BP 171/72; PULSE 82; RESP 16; O2SAT 94
[2021-02-23 14:19] VITALS: BP 173/73; PULSE 73; RESP 16; TEMP 36.5; O2SAT 93
== END 2021-02-23 14:26 | disposition home or self-care (01) ==
LOC: OUTP 12:55
PROVIDERS: PCP Physician Assistant; Visit Provider Internal Medicine Gastroenterology
PROC: 0DJ08ZZ Inspection of Upper Intestinal Tract, Via Natural or Artificial Opening Endoscopic (ICD-10-PCS; CPT 43235; principal; 2021-02-23 13:30)
DX: K44.9 Diaphragmatic hernia without obstruction or gangrene (principal); K21.9 Gastro-esophageal reflux disease without esophagitis; K22.4 Dyskinesia of esophagus; K31.9 Disease of stomach and duodenum, unspecified; Z87.19 Personal history of other diseases of the digestive system
CPT/HCPCS: 43239; 88305

== ENCOUNTER → 2021-06-16 13:58 | Outpatient (CLI) | payer MEDICARE, SELFPAY | PROVIDERS: Visit Provider Nurse Practitioner Family | DX: N39.0 Urinary tract infection, site not specified (principal); B96.20 Unspecified Escherichia coli [E. coli] as the cause of diseases classified elsewhere | CPT/HCPCS: 87086; 87088; 87186 ==

== ENCOUNTER 2021-06-27 10:04 | Inpatient (IN) | payer MEDICARE, SELFPAY ==
[2021-06-27] VITALS (16 sets, daily range): BP systolic 134–158; BP diastolic 46–56; PULSE 68–119; RESP 16–22; TEMP 36.6–39.2; O2SAT 89–97; BMI 26.5; BMI 26.3
--- NOTE | 2021-06-27 10:21 | HMH.EDGENADL ---
ED Disposition Clinical Impression: SIRS (systemic inflammatory response syndrome) CAP (community acquired pneumonia) Qualifiers: Laterality: unspecified laterality Qualified Code(s): J18.9 - Pneumonia, unspecified organism Disposition: Admitted As Inpatient Condition on Discharge: Fair Referrals: Alexey Garcia MD [Primary Care Provider] - - Critical Care Critical Care Time: No Attestation: On , the high probability of a clinically significant, sudden or life threatening deterioration of the following system(s) required my full and direct attention, intervention and personal management. The time I documented below is in addition to time spent performing reported procedures but includes the following listed in this critical care notation. Medical Decision Making - Medical Records Medical records reviewed: Yes: I reviewed the patient's medical records. - James Inquiry Pt receiving controlled substance: No James was queried for this patient: No Vital Signs: 06/27/21 10:05 06/27/21 10:45 06/27/21 11:14 Temperature 102.6 F H 101.1 F H Temperature Source Oral Oral Pulse Rate [Radial] 119 H Respiratory Rate 22 Blood Pressure [Right Arm] 152/54 H Blood Pressure Mean [Right Arm] 86 Blood Pressure Position [Right Arm] Sitting 02 Sat by Pulse Oximetry 92 L 89 L 93 L Oxygen Delivery Method Room Air Room Air Nasal Cannula Oxygen Flow Rate (LPM) 2 - Lab Data Lab Results 06/27/21 10:25: Urine Color Yellow, Urine Appearance Clear, Urine pH 6.0, Ur Specific [place] 1.020, Urine Protein 2+, Urine Glucose (UA) Negative, Urine Ketones Trace, Urine Blood Trace-i, Urine Nitrate Negative, Urine Bilirubin Negative, Urine Urobilinogen 0.2, Ur Leukocyte Esterase Trace, Urine RBC 3-5, Urine WBC Occasional, Ur Squamous Epith Cells Occasional, Urine Bacteria Trace 06/27/21 10:25: WBC 12.6 H, RBC 3.84 L, Hgb 11.9 L, Hct 34.1 L, MCV 88.9, MCH 31.1, MCHC 35.0, RDW 13.0, Plt Count 279, MPV 8.9, Neut % (Auto) 92.8 H, Lymph % (Auto) 4.2 L, [place] % (Auto) 1.9, Eos % (Auto) 1.1, Baso % (Auto) 0.0 L, Neut # (Auto) 11.7 H, Lymph # (Auto) 0.5 L, [place] # (Auto) 0.2, Eos # (Auto) 0.1, Baso # (Auto) 0.0, Total Counted 100, Neutrophils % (Manual) 93 H, Lymphocytes % (Manual) 4 L, Monocytes % (Manual) 3, Platelet Estimate Normal, RBC Morphology Normal 06/27/21 10:25: Sodium 134 L, Potassium 4.0, Chloride 98, Carbon Dioxide 27, Anion Gap 13.0, BUN 15, Creatinine 0.70, Estimated Creat Clear 41, Estimated GFR 79, Est GFR ( Amer) 96, Glucose 148 H, Calcium 9.3, Total Bilirubin 0.3, AST 33, ALT 22, Alkaline Phosphatase 73, Total Protein 7.3, Albumin 4.0, Globulin 3.3 H, Albumin/Globulin Ratio 1.2 06/27/21 10:25: Lactate 1.3 06/27/21 10:25: SARS-CoV-2 (PCR) Not detected, Influenza A Untype (PCR) Not detected, Influenza Type B (PCR) Not detected Result diagrams: 06/27/21 10:25 06/27/21 10:25 Orders (Tests/Meds): ED MEDICATIONS Generic Name Dose Route Start Last Admin Trade Name Freq PRN Reason Stop Dose Admin Azithromycin 500 mg/ Sodium 250 mls @ 250 mls/hr 06/27/21 11:30 06/27/21 11:55 Chloride IV 07/11/21 11:29 250 mls/hr Q24H [facility] Administration Ceftriaxone Sodium 1 gm/ 50 mls @ 100 mls/hr 06/27/21 11:30 06/27/21 11:43 Sodium Chloride IV 07/11/21 11:29 100 mls/hr Q24H [facility] Administration Discontinued Medications Generic Name Dose Route Start Last Admin Trade Name Freq PRN Reason Stop Dose Admin Acetaminophen 975 mg 06/27/21 11:15 06/27/21 10:30 Acetaminophen 325mg Tab PO 06/27/21 11:16 975 mg ONCE ONE Administration Lactated Ringer's 500 mls @ 999 mls/hr 06/27/21 10:30 06/27/21 10:46 Lactated Ringer's 1000 Ml Bag IV 06/27/21 11:00 999 mls/hr .Q31M [facility] Administration ORDERS Category Date Time Status Blood Culture Stat Micro 06/27/21 10:25 Received Urine Culture Stat Micro 06/27/21 10:25 Received Medical Decision Narrative: Patient is an 86-year-old female
--- NOTE | 2021-06-27 10:30 | XR_ITS ---
PROCEDURE INFORMATION: Exam: XR Chest Exam date and time: 06/27/2021 10:30 AM Age: 86 years old Clinical indication: Cough and fever; Additional info: Cough, fever TECHNIQUE: Imaging protocol: XR of the chest. Views: 2 views. COMPARISON: CR XR CHEST 2V 12/22/2020 2:35 PM FINDINGS: Lungs: Bilateral airspace opacities. Pleural spaces: Small left pleural effusion. Heart/Mediastinum: Unremarkable. No cardiomegaly. Bones/joints: Unremarkable. IMPRESSION: 1. Multilobar pneumonia. 2. Small left pleural effusion.
[2021-06-27 10:39] LABS: Coronavirus 19, PCR Not Detected (NotDetected); Influenza A, PCR Not Detected (NotDetected); Influenza B, PCR Not Detected (NotDetected); Microscopic, Urine URINE MICROSCOPIC (MICROSCOPIC)
[2021-06-27 10:42] LABS: Eosinophils # 0.1 K/mm3 (0.0-0.4); Eosinophils % 1.1 % (0.1-12.0); Hematocrit 34.1 % (37.0-47.0); Hemoglobin 11.9 g/dL (12.2-16.2); Lymphocytes # 0.5 K/mm3 (0.7-4.5); Lymphocytes % 4.2 % (10-50); Mean Corpuscular Hemoglobin 31.1 pg (27.0-31.2); Mean Corpuscular Volume 88.9 fl (81-99); Mean Platelet Volume 8.9 fl (7.4-10.4); Monocytes # 0.2 K/mm3 (0.1-1.0); Monocytes % 1.9 % (1.7-9.3); Neutrophils # 11.7 K/mm3 (1.8-7.8); Neutrophils % 92.8 % (37.0-80.0); Platelet Count 279 K/mm3 (142-424); Red Blood Count 3.84 M/mm3 (4.20-5.40); White Blood Count 12.6 K/mm3 (4.8-10.8)
[2021-06-27 10:43] LABS: Chloride 98 mmol/L (98-107)
[2021-06-27 10:44] LABS: Appearance,Urine CLEAR (Clear); Bilirubin,Urine Negative (Negative); Blood, Urine TRACE-I (Negative); Color,Urine YELLOW (Yellow); Glucose,Urine (UA) Negative (Negative); Ketones,Urine TRACE (Negative); Leukocyte Esterase,Urine TRACE (Negative); Nitrate,Urine Negative (Negative); Protein,Urine 2+ (Negative); Sodium 134 mmol/L (136-145); Urobilinogen,Urine 0.2 EU/dl (0.2)
[2021-06-27 10:46] LABS: Alanine Aminotransferase 22 U/L (12-78); Alkaline Phosphatase 73 U/L (38-126); Aspartate Amino Transferase 33 U/L (14-36); Bilirubin,Total 0.3 mg/dl (0.2-1.3); Blood Urea Nitrogen 15 mg/dl (7-17); Creatinine Clearance Estimated 41 mL/min (50-200); Estimated Glomerular Filt Rate 79 ml/min (>60); GFR (African American) 96 ML/MIN (>60)
--- NOTE | 2021-06-27 10:46 | PC.NURSE ---
Pt to RAD
[2021-06-27 10:47] LABS: Albumin/Globulin Ratio 1.2 (1.1-1.8); Calcium 9.3 mg/dl (8.4-10.2); Carbon Dioxide 27 mmol/L (22.0-30.0); Globulin 3.3 g/dL (1.3-3.2); Glucose 148 mg/dl (74-100); MANUAL DIFFERENTIAL MANUAL DIFFERENTIAL (MANUAL DIFF); Total Protein,Serum 7.3 g/dl (6.3-8.2)
[2021-06-27 10:51] LABS: Lactic Acid 1.3 mmol/L (0.7-2.1)
[2021-06-27 10:58] LABS: Bacteria,Urine Trace /lpf; Squamous Epithelial Cell,Urine Occasional #/hpf (0-5); WBC,Urine Occasional #/hpf (0-3)
[2021-06-27 11:16] LABS: Lymphocytes % 4 % (10-50); Monocytes % 3 % (2-9); Neutrophils % 93 % (42-76); Total Cells Counted 100
[2021-06-27 11:18] LABS: Platelet Estimate Normal; RBC Morphology Normal
--- NOTE | 2021-06-27 12:38 | PC.NURSE ---
HOUSE CALLED FOR BED PLACEMENT
--- NOTE | 2021-06-27 13:28 | PC.NURSE ---
ATTEMPTED TO CALL REPORT WILL NEED TO CALL BACK
--- NOTE | 2021-06-27 13:40 | PC.NURSE ---
REPORT TO FLOOR
--- NOTE | 2021-06-27 13:57 | HMH.ITSTN ---
called ER spoke to nurse-- patient already had a chest xray today-- there was another order placed for one-- should be for tomorrows date per the ER nurse-- changed date till AM tomorrow 06/28/21
--- NOTE | 2021-06-27 14:22 | P.CONPHA_ITS ---
[facility] Pharmacy VTE Monitoring - Patient Demographics Admission date: 06/27/21 Report Date: 06/27/21 Time: 14:22 Allergies/Adverse Reactions: Patient Allergies No Known Allergies Allergy (Verified 06/16/21 11:16) Height: 1.57 m Weight: 65.771 kg Patient Problems: Current Active Problems CAP (community acquired pneumonia) (Acute) SIRS (systemic inflammatory response syndrome) (Acute) - VTE Risk Labs: VTE Related Lab Results Hgb 11.9 g/dL (12.2-16.2) L 06/27/21 10:25 Hct 34.1 % (37.0-47.0) L 06/27/21 10:25 Plt Count 279 K/mm3 (142-424) 06/27/21 10:25 BUN 15 mg/dl (7-17) 06/27/21 10:25 Creatinine 0.70 mg/dl (0.52-1.04) 06/27/21 10:25 Estimated Creat Clear 41 mL/min (50-200) 06/27/21 10:25 - Prophylaxis Types of VTE Prophylaxis: Pharmacological Pharmacologic Type: Enoxaparin (LOVENOX ORDERED)
[2021-06-28] VITALS: BP 150/54; PULSE 71; RESP 15; TEMP 37.3; O2SAT 92
[2021-06-28 04:00] VITALS: BP 151/67; PULSE 75; RESP 14; TEMP 37.1; O2SAT 97
[2021-06-28 05:54] VITALS: BMI 26.8
--- NOTE | 2021-06-28 06:00 | XR_ITS ---
PROCEDURE INFORMATION: Exam: XR Chest Exam date and time: 06/28/2021 6:00 AM Age: 86 years old Clinical indication: Shortness of breath; Additional info: Pneumonia TECHNIQUE: Imaging protocol: XR of the chest. Views: 1 view. COMPARISON: CR XR CHEST 2V 06/27/2021 10:38 AM FINDINGS: Lungs: Patchy left retrocardiac/basal infiltrate. Pleural spaces: Possible trace bibasal pleural fluid. Heart/Mediastinum: Mild cardiomegaly. Bones/joints: Unremarkable. IMPRESSION: 1. Mild cardiomegaly with possible trace bibasal pleural fluid. 2. Patchy left retrocardiac/basal infiltrate.
[2021-06-28 06:51] LABS: Basophils % 0.4 % (0.1-2.0); Eosinophils # 0.6 K/mm3 (0.0-0.4); Eosinophils % 7.6 % (0.1-12.0); Lymphocytes # 1.2 K/mm3 (0.7-4.5); Mean Corpuscular HGB Conc 32.5 g/dL (31.8-35.4); Mean Corpuscular Hemoglobin 30.7 pg (27.0-31.2); Mean Corpuscular Volume 94.4 fl (81-99); Mean Platelet Volume 8.3 fl (7.4-10.4); Monocytes # 0.4 K/mm3 (0.1-1.0); Monocytes % 5.2 % (1.7-9.3); Neutrophils # 5.4 K/mm3 (1.8-7.8); Neutrophils % 70.7 % (37.0-80.0); Platelet Count 256 K/mm3 (142-424); Red Cell Distribution Width 13.1 % (11.5-17.5); White Blood Count 7.7 K/mm3 (4.8-10.8)
[2021-06-28 06:55] LABS: Potassium 3.9 mmoL/L (3.5-5.1); Sodium 137 mmol/L (136-145)
[2021-06-28 06:56] LABS: Chloride 101 mmol/L (98-107)
[2021-06-28 06:58] LABS: Anion Gap 7.9 mEq/L (5-15); Blood Urea Nitrogen 15 mg/dl (7-17); Calcium 9.3 mg/dl (8.4-10.2); Carbon Dioxide 32 mmol/L (22.0-30.0); Creatinine Clearance Estimated 41 mL/min (50-200); Estimated Glomerular Filt Rate 95 ml/min (>60); GFR (African American) 114 ML/MIN (>60); Glucose 91 mg/dl (74-100)
[2021-06-28 06:59] LABS: Hemoglobin 10.8 g/dL (12.2-16.2)
--- NOTE | 2021-06-28 07:06 | PC.NURSE ---
pt admitted yesterday, no issues and patient rested well, pt given tylenol per request to help her rest, VSS, pt axo and up to bathroom with standby assist, 02 remains at 1L pnc.
[2021-06-28 08:00] VITALS: BP 175/55; PULSE 69; RESP 18; TEMP 36.8; O2SAT 94
--- NOTE | 2021-06-28 11:12 | HMH.HP ---
*Admission Date: 06/27/21 *Chief complaint: pneumonia *History of present illness: Patient is an 86-year-old white female who sees you Avis Desir in our office. She was admitted through the emergency room with pneumonia. Her T-max was 103. She had desaturated down to 80% was given O2 per nasal cannula at 1 which brought her up to 94%. She has had some subjective dysuria, her UA was equivocal. Further lab work showed an elevated white count with a left shift. Lactic was normal. White count today is 7.7. Urine culture shows no growth blood culture is pending. Patient's chest x-ray shows some cardiomegaly and infiltrative process at the left base. She is admitted for further evaluation and treatment of a community acquired pneumonia. She is currently on a azithromycin and Rocephin. She voices an uneventful night and seems to be doing well this morning. She is alert awake and oriented. She is having no dyspnea or suggestion of respiratory distress. She relays that she is generally healthy [facility] History Medical History: Reports:: Anxiety, Gastroesophageal Reflux Disease(GERD), Hiatal Hernia, Hypertension Denies:: Atrial Fibrillation, Cancer, Chronic Obstructive Pulmonary Disease (COPD), Diabetes Mellitus Type 1, Diabetes Mellitus Type 2, Internal Pacemaker, Lung Disease, MRSA, Seizures *Have you ever received a pneumonia vaccine?: No *Have you received a flu vaccine this season?: No Other Medical History: Reports: Cataracts. Denies: Thyroid Disease Laterality Cases: Bilateral: Other Other Surgeries: Yes: Cholecystectomy, Other. No: Pacemaker Amputation: No Fractures: No - *Social History Smoking Status: Never smoker Alcohol Intake: never Substance Use Type: denies use *Occupational Status:: retired Housing: house Household Members: children *Travel in the last 8 weeks: None - Psychiatric History Pschychiatric History:: Reports:: Anxiety Family Hx:: No significant family history Review of Systems - Constitutional Reports chills, Reports lack of energy - Eyes Denies change in vision - ENT Denies abnormal hearing - *Cardiovascular Reports shortness of breath with activity - *Respiratory Reports change in phlegm color, Reports chest congestion, Reports cough, Reports shortness of breath - *Gastrointestinal Reports heartburn, Denies abdominal pain - *Genitourinary Reports urinary urgency - *Musculoskeletal Reports muscle weakness - Integumentary/Breasts Denies yellowing of the skin - *Neurologic Reports weakness, Denies loss of vision, Denies memory loss - Psychiatric Reports anxiety - Endocrine Reports increased urination - Hematologic/Lymphatic Denies easy bleeding, Denies easy bruising - Allergic/Immunologic Denies wheezing Meds Home Medications Medication Instructions Recorded Confirmed Type cetirizine 10 mg capsule 10 mg PO DAILY cap 06/24/20 06/27/21 History Alendronate Sodium [Fosamax 70mg 70 mg PO WEEKLY 06/27/21 06/27/21 History Tablet] Amlodipine Besylate 5 mg PO DAILY 06/27/21 06/27/21 History Benazepril HCl [Lotensin] 20 mg PO DAILY 06/27/21 06/27/21 History Doxazosin Mesylate [Cardura 4mg 4 mg PO BID 06/27/21 06/27/21 History Tab] Fluticasone Propionate [Flonase 2 sprays INHALATION DAILY 06/27/21 06/27/21 History Allergy Relief NS] Metoclopramide HCl [Metoclopramide 5 mg PO ACHS 06/28/21 06/28/21 History 5mg Tab] Allergies Allergy/AdvReac Type Severity Reaction Status Date / Time No Known Allergies Allergy Verified 06/16/21 11:16 Exam Vital signs and Labs for Last 24 Hours: Temp Pulse Resp BP Pulse Ox 98.2 F 69 18 175/55 H 94 L 06/28/21 08:00 06/28/21 08:00 06/28/21 08:00 06/28/21 08:00 06/28/21 08:00 Laboratory Results - last 24 hr 06/27/21 10:25: Total Counted 100, Neutrophils % (Manual) 93 H, Lymphocytes % (Manual) 4 L, Monocytes % (Manual) 3, Platelet Estimate Normal, RBC Morphology Normal 06/28/21 06:20: WBC 7.7 D
--- NOTE | 2021-06-28 13:43 | PC.NURSE ---
Pt's IV in RAC infiltrated while azithromycin was running warm compress applied and arm elevated on pillows, Hema PharMD contacted for any further directions and no other orders are needed.
[2021-06-28 16:00] VITALS: BP 175/68; PULSE 73; RESP 17; TEMP 37.4; O2SAT 93
--- NOTE | 2021-06-28 18:17 | PC.NURSE ---
Pt has been successfully weaned down to RA this shift. O2 sats 92-94%. Pt's appetite has been fair this shift, no BM noted. Pt is a standby assist to and from the bathroom with steady gait and balance. No other acute changes or complaints, will continue to monitor.
[2021-06-28 19:54] VITALS: BP 184/64; PULSE 79; RESP 14; TEMP 36.8; O2SAT 91
[2021-06-28 20:00] VITALS: RESP 16; O2SAT 91
--- NOTE | 2021-06-29 05:16 | PC.NURSE ---
pt rested well through the night, lungs with fine crackles heard at the bases, VSS, pt denies any pain, no other issues or concerns noted, pt is [place]
[2021-06-29 05:36] VITALS: BP 162/73; PULSE 93; RESP 16; TEMP 37.4; O2SAT 93; BMI 26.9
--- NOTE | 2021-06-29 06:00 | XR_ITS ---
PROCEDURE INFORMATION: Exam: XR Chest Exam date and time: 06/29/2021 6:00 AM Age: 86 years old Clinical indication: Other: Pneumonia TECHNIQUE: Imaging protocol: XR of the chest. Views: 1 view. COMPARISON: CR XR CHEST PORTABLE 06/28/2021 7:26 AM FINDINGS: Lungs: Retrocardiac opacity is noted. Chronic interstitial changes are noted. Pleural spaces: Unremarkable. No pleural effusion. No pneumothorax. Heart/Mediastinum: The heart is enlarged. Bones/joints: Unremarkable. IMPRESSION: Stable retrocardiac opacity.
[2021-06-29 06:58] LABS: Basophils % 0.3 % (0.1-2.0); Chloride 101 mmol/L (98-107); Eosinophils # 0.5 K/mm3 (0.0-0.4); Eosinophils % 7.7 % (0.1-12.0); Hematocrit 34.1 % (37.0-47.0); Hemoglobin 10.8 g/dL (12.2-16.2); Lymphocytes % 16.6 % (10-50); Mean Corpuscular HGB Conc 31.7 g/dL (31.8-35.4); Mean Corpuscular Hemoglobin 29.5 pg (27.0-31.2); Mean Corpuscular Volume 93.1 fl (81-99); Mean Platelet Volume 8.6 fl (7.4-10.4); Monocytes # 0.3 K/mm3 (0.1-1.0); Monocytes % 5.4 % (1.7-9.3); Neutrophils # 4.4 K/mm3 (1.8-7.8); Platelet Count 290 K/mm3 (142-424); Red Blood Count 3.66 M/mm3 (4.20-5.40); Red Cell Distribution Width 13.1 % (11.5-17.5); Sodium 138 mmol/L (136-145); White Blood Count 6.3 K/mm3 (4.8-10.8)
[2021-06-29 06:59] LABS: Potassium 3.7 mmoL/L (3.5-5.1)
[2021-06-29 07:01] LABS: Alanine Aminotransferase 17 U/L (12-78); Albumin Level 3.3 g/dl (3.5-5.0); Alkaline Phosphatase 57 U/L (38-126); Anion Gap 7.7 mEq/L (5-15); Aspartate Amino Transferase 27 U/L (14-36); Blood Urea Nitrogen 12 mg/dl (7-17); Carbon Dioxide 33 mmol/L (22.0-30.0); Creatinine Clearance Estimated 42 mL/min (50-200); Estimated Glomerular Filt Rate 95 ml/min (>60); GFR (African American) 114 ML/MIN (>60); Globulin 3.3 g/dL (1.3-3.2); Total Protein,Serum 6.6 g/dl (6.3-8.2)
[2021-06-29 07:02] LABS: Bilirubin,Total 0.1 mg/dl (0.2-1.3); Calcium 9.2 mg/dl (8.4-10.2); Glucose 98 mg/dl (74-100)
[2021-06-29 08:00] VITALS: BP 196/65; PULSE 79; RESP 14; TEMP 36.9; O2SAT 93
--- NOTE | 2021-06-29 09:03 | CA_ITS ---
APPROVED REPORT EXAM: Comprehensive 2D, Doppler, and color-flow Echocardiogram Staff Design Engineer: Piper Hernández RVT Ht: 5 ft 1 in Wt: 146lbs BSA: 1.65 BP: 175/55 mmHg Indications: MURMUR,CARDIOMEGALY,GERD,HTN 2D Dimensions LVOT 1.86 cm (M/F) 1.5-2.5 LA Volume 31.40 mL LA Volume Index 19.03 mL/m2 (M/F) 16-34 M-Mode Dimensions RVDd 1.81 cm (0.9-2.6) LA Diam 4.82 cm (1.9-4.0) LVDd 4.82 cm (3.5-5.7) Ao Diam 2.32 cm (2.0-3.7) LVDs 3.34 cm (3.5-5.7) IVSd 1.33 cm (0.6-1.1) PWd 0.92 cm (0.6-1.1) EF (Teich) 58.20% FS 30.70% EDV (Teich) 108.60 mL TAPSE 2.87 (<1.7) ESV (Teich) 45.40 mL LV Diastology E Decel Time 150.00 (160-240 msec) E/A Ratio 0.7 MED E' 7.20 (< 7 cm/sec) E'/MED E' Ratio 14.44 (>14) LAT E' 8.00 (<10 cm/sec) E/LAT E' Ratio 13.00 (>14) Aortic Valve AI PHT 617.00 ms Mitral Valve MV E Max Stalin. 104.00 (40-130 cm/s) MV A Velocity 140.00 (40-130 cm/s) E/A Ratio 0.74 MV Decel. Time 150.00 (160-240 ms) MV PHT 44.00 ms Pulmonary Valve PV Peak Velocity 91.00 (50-150 cm/s) Tricuspid Valve TR P. Velocity 309.00 cm/s RAP Estimate 10.00 mmHg RVSP 48.10 mmHg Left Ventricle Left atrium is mildly enlarged, left ventricle is normal size, mild concentric left ventricular hypertrophy, visually estimated ejection fraction 55% with no regional wall motion abnormality, grade 1 diastolic dysfunction seen without tissue Doppler evidence of raise left atrial pressure. Right Ventricle Right atrium and right ventricle is normal size and contractility. Aortic Valve Aortic valve is thickened and calcified aortic outflow velocity is increased, degree of aortic stenosis is not calculated in the study, there is mild to moderate aortic insufficiency, repeat study with better Doppler technique is recommended to reevaluate aortic valve. Mitral Valve Mitral valve leaflets are minimally thickened, there is mild mitral regurgitation there is no mitral stenosis. Tricuspid Valve Tricuspid valve grossly normal, there is trace tricuspid regurgitation. Tricuspid regurgitation jet velocity is inadequate for calculation of the right ventricular systolic pressure. Pulmonic Valve Pulmonic valve is poorly visualized. Great Vessels Aortic root is normal size. Inferior vena cava is poorly visualized. Pericardium No significant pericardial effusion noted. Conclusion 1. Mildly enlarged left atrium, normal left ventricular size, mild concentric left ventricular hypertrophy, visually estimated ejection fraction 55% with no regional wall motion abnormality, grade 1 diastolic dysfunction seen without tissue Doppler evidence of raise left atrial pressure. 2. Thickened and calcified aortic valve as described above, there is mild to moderate aortic insufficiency, a repeat study with better Doppler technique is recommended to reevaluate the aortic valve. 3. Mild mitral and tricuspid regurgitation. 4. No significant pericardial effusion noted. 5. Inferior vena cava is poorly visualized. Electronically signed by : Rajan Nix MD 06/29/2021 21:04:46
--- NOTE | 2021-06-29 09:05 | HMH.ACPN2 ---
Internal Medicine - PN: Subj *Date: 06/29/21 *Time: 08:10 Interval history: pt states she is feeling much better today, o2 at .5 liters nc Exam Vital signs and Labs for Last 24 Hours: Temp Pulse Resp BP Pulse Ox 98.4 F 79 14 196/65 H 93 L 06/29/21 08:00 06/29/21 08:00 06/29/21 08:00 06/29/21 08:00 06/29/21 08:00 Laboratory Results - last 24 hr 06/29/21 06:35: WBC 6.3, RBC 3.66 L, Hgb 10.8 L, Hct 34.1 L, MCV 93.1, MCH 29.5, MCHC 31.7 L, RDW 13.1, Plt Count 290, MPV 8.6, Neut % (Auto) 70.0, Lymph % (Auto) 16.6, [place] % (Auto) 5.4, Eos % (Auto) 7.7, Baso % (Auto) 0.3, Neut # (Auto) 4.4, Lymph # (Auto) 1.0, [place] # (Auto) 0.3, Eos # (Auto) 0.5 H, Baso # (Auto) 0.0 06/29/21 06:35: Sodium 138, Potassium 3.7, Chloride 101, Carbon Dioxide 33 H, Anion Gap 7.7, BUN 12, Creatinine 0.60, Estimated Creat Clear 42, Estimated GFR 95, Est GFR ( Amer) 114, Glucose 98, Calcium 9.2, Total Bilirubin 0.1 L, AST 27, ALT 17, Alkaline Phosphatase 57, Total Protein 6.6, Albumin 3.3 L, Globulin 3.3 H, Albumin/Globulin Ratio 1.0 L I & O for Last 24 hours: Intake & Output 06/26/21 06/27/21 06/28/21 06/29/21 11:59 11:59 11:59 11:59 Intake Total 1449 / 1449 2917 / 2917 Output Total 0 / 0 Balance 1449 / 1449 2917 / 2917 Weight 145 lb 145 lb 14.4 oz 146 lb 4.8 oz Microbiology Reports for the Last 24 Hours: Microbiology 06/27/21 10:25 Urine,Clean Catch Urine Culture - Preliminary NO GROWTH AFTER 24 HOURS - Constitutional no acute distress - *Routine HEENT Exam Head: Present: normocephalic Eye: Present: PERRL ENT: Present: mucous membranes moist - *Routine Neck Exam Present: supple. Absent: lymphadenopathy - *Routine Respiratory Exam Present: CTA bilaterally - *Routine Cardiovascular Exam Present: RRR, murmur - *Routine Abdominal Exam Present: soft, normoactive bowel sounds. Absent: tenderness - *Routine Extremities Exam Absent: cyanosis, clubbing, edema - *Routine Skin Exam Present: warm. Absent: rash - *Routine Neurological Exam Present: alert, oriented X3 Assessment and Plan (1) CAP (community acquired pneumonia) Status: Acute Qualifiers: Laterality: unspecified laterality Qualified Code(s): J18.9 - Pneumonia, unspecified organism Category: Medical Code(s): J18.9 - Pneumonia, unspecified organism (2) SIRS (systemic inflammatory response syndrome) Status: Acute Category: Medical Code(s): R65.10 - Systemic inflammatory response syndrome (SIRS) of non-infectious origin without acute organ dysfunction (3) Gastritis Status: Chronic Qualifiers: Gastritis type: unspecified gastritis Chronicity: acute Gastritis bleeding: without bleeding Qualified Code(s): K29.00 - Acute gastritis without bleeding Category: Medical Code(s): K29.70 - Gastritis, unspecified, without bleeding (4) Hiatal hernia Status: Chronic Category: Medical Code(s): K44.9 - Diaphragmatic hernia without obstruction or gangrene (5) Osteoporosis Status: Chronic Qualifiers: Osteoporosis type: age-related Category: Medical Code(s): M81.0 - Age-related osteoporosis without current pathological fracture (6) Anxiety Status: Chronic Category: Medical Code(s): F41.9 - Anxiety disorder, unspecified (7) Hypertension Status: Chronic Qualifiers: Hypertension type: primary hypertension Qualified Code(s): I10 - Essential (primary) hypertension Category: Medical Code(s): I10 - Essential (primary) hypertension - Assessment and plan all Dx Assessment and Plan for all problems:: rounded with dr almaraz all orders per dr almaraz echo cardiology consult oob wean o2
--- NOTE | 2021-06-29 09:52 | SW/DCPLANNER ---
PATIENT ADMITTED TO [facility] FROM HOME WITH PNEUMONIA AND SIRS... PATIENT RECEIVING ANTIBIOTICS AND ONCE SHE IS MEDICALLY STABLE TO DISCHARGE SHE WILL RETURN BACK TO HER HOME... DISPOSITION UNCERTAIN, CM TO FOLLOW AND ASSIST INDICATED BY MD...
--- NOTE | 2021-06-29 10:21 | HMH.CNCARD ---
History of Present Illness Consult date: 06/29/21 Requesting physician: Alexey Garcia Chief complaint: Heart murmur History of present illness: 86-year-old female presented to [facility] on 06/27/2021 with pneumonia. Daughter is at bedside. Daughter states patient does become confused at times. Patient is alert and oriented appropriately x2. Patient states she was having a horrible cough in which she went to see her primary care provider. PCP diagnosed her with pneumonia and therefore admitted her to facility. Patient is currently receiving antibiotic IVs. Cardiology was consulted due to possible heart murmur. Daughter states she is never known patient to have history of a heart murmur. Patient denies chest pain, tightness or pressure. Patient does complain of shortness of breath. Patient is currently on no oxygen supplementation. Patient is resting quietly. No swelling noted of the lower extremities. Daughter did say patient did have a fever of 103 on Tuesday. States when patient did have fever, patient did become more confused. Daughter states patient has no known history of coronary disease. Patient is currently seeing Dr. Meade due to stomach issues. Patient does have history of hypertension. Vital signs are stable even though BP is slightly elevated. Pneumonia is currently being managed by PCP. Will obtain echocardiogram to assess LV function and valve status. Pending on the results of the echocardiogram, medication and treatment therapies may be recommended. [facility] History I have reviewed the patient's past medical history: Yes Medical History: Reports:: Anxiety, Gastroesophageal Reflux Disease(GERD), Hiatal Hernia, Hypertension Denies:: Atrial Fibrillation, Cancer, Chronic Obstructive Pulmonary Disease (COPD), Diabetes Mellitus Type 1, Diabetes Mellitus Type 2, Internal Pacemaker, Lung Disease, MRSA, Seizures *Have you ever received a pneumonia vaccine?: No *Have you received a flu vaccine this season?: No Other Medical History: Reports: Cataracts. Denies: Thyroid Disease Laterality Cases: Bilateral: Other Other Surgeries: Yes: Cholecystectomy, Other. No: Pacemaker Amputation: No Fractures: No - *Social History Smoking Status: Never smoker Alcohol Intake: never Substance Use Type: denies use *Occupational Status:: retired Housing: house Household Members: children *Travel in the last 8 weeks: None - Psychiatric History Pschychiatric History:: Reports:: Anxiety Family Hx:: No significant family history Meds Home Medications Medication Instructions Recorded Confirmed Type cetirizine 10 mg capsule 10 mg PO DAILY cap 06/24/20 06/27/21 History Alendronate Sodium [Fosamax 70mg 70 mg PO WEEKLY 06/27/21 06/27/21 History Tablet] Amlodipine Besylate 5 mg PO DAILY 06/27/21 06/27/21 History Benazepril HCl [Lotensin] 20 mg PO DAILY 06/27/21 06/27/21 History Doxazosin Mesylate [Cardura 4mg 4 mg PO BID 06/27/21 06/27/21 History Tab] Fluticasone Propionate [Flonase 2 sprays INHALATION DAILY 06/27/21 06/27/21 History Allergy Relief NS] Metoclopramide HCl [Metoclopramide 5 mg PO ACHS 06/28/21 06/28/21 History 5mg Tab] Allergies Allergy/AdvReac Type Severity Reaction Status Date / Time No Known Allergies Allergy Verified 06/16/21 11:16 Exam Vital signs and Labs for Last 24 Hours: Temp Pulse Resp BP Pulse Ox 98.4 F 79 14 196/65 H 93 L 06/29/21 08:00 06/29/21 08:00 06/29/21 08:00 06/29/21 08:00 06/29/21 08:00 Laboratory Results - last 24 hr 06/29/21 06:35: WBC 6.3, RBC 3.66 L, Hgb 10.8 L, Hct 34.1 L, MCV 93.1, MCH 29.5, MCHC 31.7 L, RDW 13.1, Plt Count 290, MPV 8.6, Neut % (Auto) 70.0, Lymph % (Auto) 16.6, [place] % (Auto) 5.4, Eos % (Auto) 7.7, Baso % (Auto) 0.3, Neut # (Auto) 4.4, Lymph # (Auto) 1.0, [place] # (Auto) 0.3, Eos # (Auto) 0.5 H, Baso # (Auto) 0.0 06/29/21 06:35: Sodium 138, Potassium 3.7, Chloride 101, Carbon Dioxide 33 H, Anion Gap 7.7, BUN
[2021-06-29 16:00] VITALS: BP 176/56; PULSE 78; RESP 14; TEMP 37.3; O2SAT 94
--- NOTE | 2021-06-29 18:31 | PC.NURSE ---
Patient is non tele and on room air. Patient is up with standby assist. Patient is alert and oriented times 4. Call light and phone in reach and bed in lowest position. Will continue to monitor.
[2021-06-29 20:00] VITALS: BP 195/49; PULSE 72; RESP 19; TEMP 37; O2SAT 93
--- NOTE | 2021-06-29 21:35 | PC.NURSE ---
No care needed.
[2021-06-30 04:00] VITALS: BP 171/60; PULSE 82; RESP 16; TEMP 36.9; O2SAT 91
--- NOTE | 2021-06-30 05:34 | PC.NURSE ---
Emptied trash and linens
[2021-06-30 05:43] VITALS: BMI 26.6
[2021-06-30 07:18] LABS: Basophils % 0.4 % (0.1-2.0); Eosinophils # 0.4 K/mm3 (0.0-0.4); Eosinophils % 6.7 % (0.1-12.0); Hematocrit 33.4 % (37.0-47.0); Hemoglobin 10.8 g/dL (12.2-16.2); Lymphocytes # 1.2 K/mm3 (0.7-4.5); Lymphocytes % 19.9 % (10-50); Mean Corpuscular HGB Conc 32.3 g/dL (31.8-35.4); Mean Corpuscular Volume 92.7 fl (81-99); Mean Platelet Volume 7.8 fl (7.4-10.4); Monocytes # 0.3 K/mm3 (0.1-1.0); Monocytes % 5.2 % (1.7-9.3); Neutrophils # 4.2 K/mm3 (1.8-7.8); Neutrophils % 67.8 % (37.0-80.0); Platelet Count 299 K/mm3 (142-424); Red Cell Distribution Width 12.7 % (11.5-17.5); White Blood Count 6.1 K/mm3 (4.8-10.8)
[2021-06-30 07:25] LABS: Chloride 101 mmol/L (98-107); Potassium 3.5 mmoL/L (3.5-5.1); Sodium 138 mmol/L (136-145)
[2021-06-30 07:28] LABS: Anion Gap 7.5 mEq/L (5-15); Blood Urea Nitrogen 13 mg/dl (7-17); Carbon Dioxide 33 mmol/L (22.0-30.0); Creatinine Clearance Estimated 41 mL/min (50-200); Estimated Glomerular Filt Rate 95 ml/min (>60); GFR (African American) 114 ML/MIN (>60)
[2021-06-30 07:29] LABS: Calcium 9.5 mg/dl (8.4-10.2); Glucose 94 mg/dl (74-100)
--- NOTE | 2021-06-30 07:38 | CA_ITS ---
APPROVED REPORT EXAM: Limited 2D Echocardiogram [place] Driver: Piper Hernández RVT Ht: 5 ft 1 in Wt: 144lbs BSA: 1.64 BP: 132/68 mmHg Indications: repeat doppler,murmur best exam possible 2D Dimensions LVOT 1.95 cm (M/F) 1.5-2.5 Aortic Valve LVOT Max 107.00 (70-110 cm/s) LVOT VTI 23.62 cm AoV Peak Stalin. 241.00 (50-130 cm/s) AO Peak GR. 23.20 mmHg AO Mean GR. 11.50 (<5 mmHg) AO VTI 52.12 (18-25 cm) YUMIKO (VTI) 1.35 (2.5-4.5 cm2) Conclusion 1. Limited echocardiogram with Doppler of the aortic valve is obtained. 2. The maximum aortic outflow velocity recorded study is 2.4 m/s, resulting in a mean gradient of 10.2 mmHg, valve area is 1.6 cm??? represents mild aortic stenosis. There is mild aortic insufficiency. Electronically signed by : Rajan Nix MD 06/30/2021 19:47:41
--- NOTE | 2021-06-30 07:38 | PC.NURSE ---
Patient rested through night without complaints. VSS. IVF infusing. Denies pain. Up with stand by assist.
[2021-06-30 08:00] VITALS: BP 183/59; PULSE 103; RESP 16; TEMP 36.6; O2SAT 93
--- NOTE | 2021-06-30 09:14 | HMH.DCSUM ---
General - General Admission date:: 06/27/21 Discharge date: 06/30/21 HPI HPI: Patient is an 86-year-old white female who sees you Avis Desir in our office. She was admitted through the emergency room with pneumonia. Her T-max was 103. She had desaturated down to 80% was given O2 per nasal cannula at 1 which brought her up to 94%. She has had some subjective dysuria, her UA was equivocal. Further lab work showed an elevated white count with a left shift. Lactic was normal. White count today is 7.7. Urine culture shows no growth blood culture is pending. Patient's chest x-ray shows some cardiomegaly and infiltrative process at the left base. She is admitted for further evaluation and treatment of a community acquired pneumonia. She is currently on a azithromycin and Rocephin. She voices an uneventful night and seems to be doing well this morning. She is alert awake and oriented. She is having no dyspnea or suggestion of respiratory distress. She relays that she is generally healthy Hospital Course Hospital Course: Patient is an 86-year-old white female who sees you Avis Desir in our office. She was admitted through the emergency room with pneumonia. Her T-max was 103. She had desaturated down to 80% was given O2 per nasal cannula at 1 which brought her up to 94%. She has had some subjective dysuria, her UA was equivocal. Further lab work showed an elevated white count with a left shift. Lactic was normal. White count today is 7.7. Urine culture shows no growth blood culture is pending. 06/29/21 ECHO: Conclusion 1. Mildly enlarged left atrium, normal left ventricular size, mild concentric left ventricular hypertrophy, visually estimated ejection fraction 55% with no regional wall motion abnormality, grade 1 diastolic dysfunction seen without tissue Doppler evidence of raise left atrial pressure. 2. Thickened and calcified aortic valve as described above, there is mild to moderate aortic insufficiency, a repeat study with better Doppler technique is recommended to reevaluate the aortic valve. 3. Mild mitral and tricuspid regurgitation. 4. No significant pericardial effusion noted. 5. Inferior vena cava is poorly visualized. Electronically signed by : Rajan Nix MD 06/30/21 ECHO: Preliminary reading on closer inspection reveals mild aortic insufficiency Cardiology has seen and recommends: Plan: 1. 86-year-old female admitted to [facility] with pneumonia. Cardiology was consulted due to possible heart murmur. Patient has no known history of heart murmur or coronary heart disease. Daughter is at bedside. Daughter states patient does have episodes of confusion at times. Patient denies chest pain, tightness or pressure. Patient does complain of shortness of breath. No swelling noted of the lower extremities. Will obtain echocardiogram to assess LV function and valve status. Pending on the echocardiogram results, medication and treatment therapies may be recommended. 2. History of hypertension. Stable. Patient is currently on a calcium channel rowena and BRADLEY inhibitor. Managed by PCP. 3. Gastrointestinal issues. Managed by PCP and Dr. Meade. 4. LDL goal<100. No statin therapy. Managed by PCP. 5. Management of pneumonia by PCP. 6. Please notify cardiology of any changes in patient status. 86-year-old female patient sitting up in chair visiting with with daughter. She denies any respiratory distress, chest pain, or shortness of breath during the night. Oxygenation is 93% on room air. She reports she is ready to be discharged. PLAN: 1. We will discharge home today 2. Increase amlodipine 5 mg to twice daily 3. Follow-up with PCP in 1 week 4. Follow-up with cardiology in 2 weeks Objective Vital signs: Temp Pulse Resp BP Pulse Ox 97.9 F 103 H 16 183/59 H 93 L 06/30/21 08:00 06/30/21 08:00 1
--- NOTE | 2021-06-30 09:43 | SW/DCPLANNER ---
The plan for this patient is to return home today. Patients daughter was present at time of rounds this AM stating that patient lives with her and family. Daughter stated that patient does well at home and does not have any needs at time of discharge.
--- NOTE | 2021-06-30 09:52 | HMH.PNCARD ---
Subjective Date: 06/30/21 Time: 09:00 Interval history: 86-year-old female presented to [facility] on 06/27/2021 with pneumonia. Daughter is at bedside. Daughter states patient does become confused at times. Patient is alert and oriented appropriately x2. PCP diagnosed her with pneumonia and therefore admitted her to facility. Patient is currently receiving antibiotic IVs. Cardiology was consulted due to possible heart murmur. Daughter states she is never known patient to have history of a heart murmur. Patient denies chest pain, tightness or pressure. Patient does complain of shortness of breath. Patient is currently on no oxygen supplementation. Patient is resting quietly. No swelling noted of the lower extremities. Patient does have history of hypertension. Vital signs are stable even though BP is elevated. Pneumonia is currently being managed by PCP. Echocardiogram was performed which revealed EF 55% with no regional wall motion abnormality, grade 1 diastolic dysfunction. Thickened and calcified aortic valve in which there is is mild to moderate aortic insufficiency it was recommended for repeat study with better Doppler technique to evaluate the aortic valve. Limited echocardiogram was ordered to reevaluate the aortic valve. Preliminary limited echocardiogram reveals mild aortic insufficiency. Waiting on official limited echocardiogram results. Pending on the echocardiogram results, medication and treatment therapies may be recommended. Echo:Conclusion 1. Mildly enlarged left atrium, normal left ventricular size, mild concentric left ventricular hypertrophy, visually estimated ejection fraction 55% with no regional wall motion abnormality, grade 1 diastolic dysfunction seen without tissue Doppler evidence of raise left atrial pressure. 2. Thickened and calcified aortic valve as described above, there is mild to moderate aortic insufficiency, a repeat study with better Doppler technique is recommended to reevaluate the aortic valve. 3. Mild mitral and tricuspid regurgitation. 4. No significant pericardial effusion noted. 5. Inferior vena cava is poorly visualized. Exam Vital signs and Labs for Last 24 Hours: Temp Pulse Resp BP Pulse Ox 97.9 F 103 H 16 183/59 H 93 L 06/30/21 08:00 06/30/21 08:00 06/30/21 08:00 06/30/21 08:00 06/30/21 08:00 Laboratory Results - last 24 hr 06/30/21 06:31: WBC 6.1, RBC 3.60 L, Hgb 10.8 L, Hct 33.4 L, MCV 92.7, MCH 30.0, MCHC 32.3, RDW 12.7, Plt Count 299, MPV 7.8, Neut % (Auto) 67.8, Lymph % (Auto) 19.9, [place] % (Auto) 5.2, Eos % (Auto) 6.7, Baso % (Auto) 0.4, Neut # (Auto) 4.2, Lymph # (Auto) 1.2, [place] # (Auto) 0.3, Eos # (Auto) 0.4, Baso # (Auto) 0.0 06/30/21 06:31: Sodium 138, Potassium 3.5, Chloride 101, Carbon Dioxide 33 H, Anion Gap 7.5, BUN 13, Creatinine 0.60, Estimated Creat Clear 41, Estimated GFR 95, Est GFR ( Amer) 114, Glucose 94, Calcium 9.5 I & O for Last 24 hours: Intake & Output 06/27/21 06/28/21 06/29/21 06/30/21 23:59 23:59 23:59 23:59 Intake Total 360 / 360 1329 / 1329 3277 / 3277 120 / 120 Output Total 0 / 0 Balance 360 / 360 1329 / 1329 3277 / 3277 120 / 120 Weight 144 lb 2 oz 145 lb 14.4 oz 146 lb 4.8 oz 144 lb 8 oz Microbiology Reports for the Last 24 Hours: Microbiology 06/27/21 10:25 Blood Blood Culture - Preliminary NO GROWTH AFTER 48 HOURS 06/27/21 10:25 Blood Blood Culture - Preliminary NO GROWTH AFTER 48 HOURS 06/27/21 10:25 Urine,Clean Catch Urine Culture - Final NO GROWTH AFTER 48 HOURS - Constitutional no acute distress, average body habitus, cooperative - *Routine HEENT Exam Head: Present: normocephalic ENT: Present: mucous membranes moist - *Routine Neck Exam Present: supple, full ROM, normal carotid upstroke. Absent: JVD, carotid bruit, lymphadenopathy - *Routine Respiratory
--- NOTE | 2021-06-30 13:07 | HMH.PHAINT ---
DISCHARGE MEDICATION COUNSELING COMPLETED. DISCUSSED THE SHORT-COURSE LEVAQUIN, HOW TO TAKE, ADES, DDI (SEPARATE FROM MVI BY 4 HRS). PATIENT AND DAUGHTER ENDORSED NO QUESTIONS AT THIS TIME.
== END 2021-06-30 13:24 | disposition home or self-care (01) | DRG 195 ==
LOC: ER 12:49 → 2ND 22:02
PROVIDERS: Family Medicine; Nurse Practitioner Family; Admitting Provider Emergency Medicine; Emergency Provider Emergency Medicine; PCP Emergency Medicine; Visit Provider Emergency Medicine
DX: J18.9 Pneumonia, unspecified organism (principal); M81.0 Age-related osteoporosis without current pathological fracture; I10 Essential (primary) hypertension; Z20.822 Contact with and (suspected) exposure to COVID-19; K21.9 Gastro-esophageal reflux disease without esophagitis; K29.70 Gastritis, unspecified, without bleeding
CPT/HCPCS: 36415; 71045; 71046; 80048; 80053; 81001; 83605; 85007; 85025; 87040; 87086; 93306; 93308; 96365; 96367; 96375; 99284; C9803; J0456; U0003; U0005

== ENCOUNTER → 2022-12-27 15:30 | Outpatient (CLI) | payer MEDICARE, SELFPAY ==
[2022-12-27 18:34] LABS: Basophils % 0.4 % (0.1-2.0); Eosinophils # 0.3 K/mm3 (0.0-0.4); Eosinophils % 3.3 % (0.1-12.0); Hematocrit 38.6 % (37.0-47.0); Hemoglobin 12.4 g/dL (12.2-16.2); Lymphocytes # 2.8 K/mm3 (0.7-4.5); Lymphocytes % 36.6 % (10-50); Mean Corpuscular HGB Conc 32.2 g/dL (31.8-35.4); Mean Platelet Volume 8.9 fl (7.4-10.4); Monocytes # 0.4 K/mm3 (0.1-1.0); Monocytes % 5.8 % (1.7-9.3); Neutrophils # 4.1 K/mm3 (1.8-7.8); Neutrophils % 53.9 % (37.0-80.0); Platelet Count 294 K/mm3 (142-424); Red Blood Count 4.15 M/mm3 (4.20-5.40); Red Cell Distribution Width 13.1 % (11.5-17.5); White Blood Count 7.7 K/mm3 (4.8-10.8)
[2022-12-27 18:37] LABS: Alanine Aminotransferase 21 U/L (12-78); Albumin Level 4.1 g/dl (3.5-5.0); Albumin/Globulin Ratio 1.3 (1.1-1.8); Alkaline Phosphatase 86 U/L (38-126); Anion Gap 15.3 mEq/L (5-15); Aspartate Amino Transferase 25 U/L (14-36); Bilirubin,Total 0.2 mg/dl (0.2-1.3); Blood Urea Nitrogen 18 mg/dl (7-17); Calcium 10.1 mg/dl (8.4-10.2); Carbon Dioxide 27 mmol/L (22.0-30.0); Chloride 101 mmol/L (98-107); Chol/HDL Ratio 3.8 (1-3.5); Cholesterol 244 mg/dl (140-200); Estimated Glomerular Filt Rate 79 ml/min (>60); GFR (African American) 96 ML/MIN (>60); Globulin 3.2 g/dL (1.3-3.2); Glucose 138 mg/dl (74-100); HDL Cholesterol 65 mg/dl (40-60); Potassium 4.3 mmoL/L (3.5-5.1); Sodium 139 mmol/L (136-145); Total Protein,Serum 7.3 g/dl (6.3-8.2); Triglycerides 266 mg/dl (30-150); VLDL Cholesterol 53 mg/dL (0-40)
[2022-12-27 18:48] LABS: Direct LDL Cholesterol 100.71 mg/dL (100-129)
[2022-12-27 18:55] LABS: 25-OH Vitamin D, Total 60.2 ng/mL (30-100)
[2022-12-27 19:08] LABS: Thyroid Stimulating Hormone 1.53 uIU/mL (0.465-4.68)
[2022-12-28 15:40] LABS: Hemoglobin A1C 5.9 % (4.0-6.0)
== END ==
PROVIDERS: PCP Physician Assistant; Visit Provider Physician Assistant
DX: I10 Essential (primary) hypertension (principal); M81.0 Age-related osteoporosis without current pathological fracture; R73.09 Other abnormal glucose; Z79.899 Other long term (current) drug therapy
CPT/HCPCS: 80053; 80061; 82306; 83036; 84443; 85025